=== PATIENT | male | born 1950 | race Caucasian/White ===

== ENCOUNTER 2017-06-08 17:40 | Emergency (ER) | payer OTHER ==
--- NOTE | 2017-06-08 17:43 | EDPHY ---
HPI/HX/ROS/PE/MDM Narrative: CHIEF COMPLAINT: Alcohol intoxication HPI: The patient is a homeless 67 y/o male arriving via EMS after he fell at the homeless assisted while intoxicated. He was not injured in the fall but EMS was unable to get him to stand up and walk. In the ambulance, EMS noted a cough. REVIEW OF SYSTEMS: Limited secondary to intoxication. PMH: Cellulitis on hands, currently being treated with unknown antibiotic. Review of [facility] database indicates numerous ED visits to [facility] including essentially negative CTA within last 1-2 months. History of chronic non- occlusive PE. SOCIAL HISTORY: Homeless, lives in the homeless assisted, alcohol use PHYSICAL EXAM: General:Patient is alert, in no acute distress. He is obviously intoxicated. ENT:Eyes are normal to inspection. ENT inspection normal. Neck: Normal inspection. Full range of motion. Respiratory:No respiratory distress. Diffuse rhonchi noted. Cardiovascular: Regular rate and rhythm. Strong peripheral pulses. Normal cap refill. Abdomen:The abdomen is nontender to palpation. There are no peritoneal signs. There are normal bowel sounds. Back: Normal to inspection. No tenderness to palpation. Skin: Normal color. No rash. Warm and dry. Extremities: Normal appearance. Full range of motion. Neuro: Oriented x3. Normal motor function. Normal sensory function. ED Course: Patient was observed for several hours in the ED with gradual increase in mental status. MDM: This patient presents to the ED secondary to being too intoxicated to walk. His CXR shows possible PNA, but patient is afebrile, not hypoxic and has a normal WBC, so I think this may represent atelectasis or possible early PNA, but the patient is not showing any clear indication for admission. He maintains an ambulatory pulse ox on RA of 92%. He is not complaining of chest pain. I have given the patient an azithromycin here in the ED and will have him return to the ED if he feels ill tomorrow rather than admit for obs. - Data Points Imaging Results: Imaging Impressions Chest X-Ray 06/08/17 17:57 Impression: 1. Left lower lobe pneumonia. 2. Chronic bronchitis. 3. Cardiomegaly and atherosclerotic aorta. 4. Recommend follow-up until clear. Study: X-ray of the chest Indication: Cough Results: X-ray of the chest was obtained. The results of the study are: pneumonia The study was read by the radiologist, Dr. Mackay. I viewed the images myself on the PACS system. Imaging: Discussed imaging studies w/ call center recruiter Radiologist, I viewed and interpreted images myself Laboratory Results: Laboratory Results 06/08/17 18:20 06/08/17 18:55 06/08/17 06/08/17 18:55 18:20 WBC 7.21 10^3/uL 10^3/uL (3.80-9.50) RBC 4.28 10^6/uL L 10^6/uL (4.40-6.38) Hgb 13.7 g/dL g/dL (13.7-17.5) Hct 42.5 % % (40.0-51.0) MCV 99.3 fL fL (81.5-99.8) MCH 32.0 pg pg (27.9-34.1) MCHC 32.2 g/dL L g/dL (32.4-36.7) RDW 15.2 % % (11.5-15.2) Plt Count 239 10^3/uL 10^3/uL (150-400) MPV 9.7 fL fL (8.7-11.7) Neut % (Auto) 56.3 % % (39.3-74.2) Lymph % (Auto) 34.4 % % (15.0-45.0) [place] % (Auto) 6.8 % % (4.5-13.0) Eos % (Auto) 0.0 % L % (0.6-7.6) Baso % (Auto) 1.5 % % (0.3-1.7) Nucleat RBC Rel Count 0.0 % % (0.0-0.2) Absolute Neuts (auto) 4.06 10^3/uL 10^3/uL (1.70-6.50) Absolute Lymphs (auto) 2.48 10^3/uL 10^3/uL (1.00-3.00) Absolute Monos (auto) 0.49 10^3/uL 10^3/uL (0.30-0.80) Absolute Eos (auto) 0.00 10^3/uL L 10^3/uL (0.03-0.40) Absolute Basos (auto) 0.11 10^3/uL H 10^3/uL (0.02-0.10) Absolute Nucleated RBC 0.00 10^3/uL 10^3/uL (0-0.01) Immature Gran % 1.0 % % (0.0-1.1) Immature Gran # 0.07 10^3/uL 10^3/uL (0.00-0.10) Sodium 140 mEq/L mEq/L (134-144) Potassium 4.1 mEq/L mEq/L (3.5-5.2) Chloride 106 mEq/L mEq/L (97-110) Carbon Dioxide 23 mEq/l mEq/l (22-31) Anion Gap 11 mEq/L mEq/L (8-16) BUN 10 mg/dL mg/dL (7-23) Creatinine 0.6 mg/dL L mg/dL (0.7-1.3) Estimated GFR > 60 Glucose 79 mg/dL mg/dL (70-100) Calcium 9.2 mg/dL mg/dL (8.5-10.4) Ethyl Alcohol 181 mg/dL H mg/dL (0-10) General Initial Vital Signs: Initial Vital Signs Temperature (C) 36.6 C 06/08/17 17:52 Heart Rate 84 06/08/17 17:52 Respiratory Rate 18 06/08/17 17:52 Blood Pressure 127/75 H 06/08/17 17:52 O2 Sat (%) 93 06/08/17 17:52 O2 Delivery Mode Nasal Cannula O2 (L/minute) 2 Allergies/Adverse Reactions: Penicillins Allergy (Verified 06/08/17 17:50) Home Medications: Medication Instructions Recorded AZITHROMYCIN [Z-PACK] 250 mg PO DAILY #6 tab 06/08/17 Antibiotic For Skin Infection 06/08/17 Departure - Departure Disposition: Home, Routine, Self-Care Clinical Impression: Alcoholic intoxication, Pneumonia Condition: Good Instructions: Alcohol Intoxication (ED) Additional Instructions: Return to the ED tomorrow for re-evaluation if feeling ill. Take antibiotics as prescribed. Return to the ED for chest pain, difficulty breathing or other concerns. Referrals: NONE *PRIMARY CARE P,. [Primary Care Provider] - As per Instructions Prescriptions: AZITHROMYCIN [Z-PACK] 250 mg PO DAILY #6 tab Report Scribed for: Mayo Ellis Report Scribed by: Eun Cazares Date of Report: 06/08/17 Time of Report: 17:43 Physician Review and Approval Statement: Portions of this note were transcribed by an ED scribe. I personally performed the history, physical exam, and medical decision making; and confirm the accuracy of the information in the transcribed note.
[2017-06-08 18:52] LABS: ABSOLUTE IMMATURE GRANULOCYTES 0.07 10^3/uL (0.00-0.10); ADD DIFF? NO; ADD MORPH? NO; ADD SCAN? NO; ATYPICAL LYMPHOCYTE FLAG 30 (0-99); FRAGMENT RBC FLAG 0 (0-99); HEMATOCRIT 42.5 % (40.0-51.0); HEMOGLOBIN 13.7 g/dL (13.7-17.5); LEFT SHIFT FLG 0 (0-99); LIPEMIA HEMOLYSIS FLAG 80 (0-99); MEAN CELL HEMOGLOBIN CONCENTR. 32.2 g/dL (32.4-36.7); MEAN CELL VOLUME 99.3 fL (81.5-99.8); MEAN PLATELET VOLUME 9.7 fL (8.7-11.7); PLATELET CLUMPS FLAG 0 (0-99); PLATELET COUNT 239 10^3/uL (150-400); RED BLOOD CELL COUNT 4.28 10^6/uL (4.40-6.38); RED CELL DISTRIBUTION WIDTH 15.2 % (11.5-15.2)
[2017-06-08 19:26] LABS: ANION GAP 11 mEq/L (8-16); CALCIUM 9.2 mg/dL (8.5-10.4); CARBON DIOXIDE 23 mEq/l (22-31); CHLORIDE 106 mEq/L (97-110); CREATININE 0.6 mg/dL (0.7-1.3); ETHANOL SERUM 181 mg/dL (0-10); GLOMERULAR FILTRATION RATE > 60; GLUCOSE 79 mg/dL (70-100); POTASSIUM 4.1 mEq/L (3.5-5.2); SODIUM 140 mEq/L (134-144)
[2017-06-08] MEDS ORDERED: AZITHROMYCIN 250 MG TAB PO ONE (21:01)
[2017-06-08 21:41] VITALS: BP 111/63; PULSE 89; RESP 16; TEMP 97.9; O2SAT 90
== END 2017-06-08 22:15 | disposition home or self-care (01) ==
DX: F10.129 Alcohol abuse with intoxication, unspecified (principal); J18.9 Pneumonia, unspecified organism
CPT/HCPCS: G0480

== ENCOUNTER 2017-06-16 17:39 | Emergency (ER) | payer OTHER ==
--- NOTE | 2017-06-16 17:43 | EDPHY ---
HPI/HX/ROS/PE/MDM Narrative: CHIEF COMPLAINT: Fall, struck head HPI: The patient is an intoxicated homeless 67 y/o male arriving via EMS for evaluation of a possible head injury after falling and striking his head this afternoon. His medical history includes COPD, SD, stroke, and rheumatoid arthritis. He was evaluated in the ED here 06/08/17, 8 days ago, for a cough and diagnosed with pneumonia and discharged with azithromycin and an albuterol inhaler. Per EMS, the patient stumbled across the street and fell striking his right temporal region. He did not lose consciousness and denied any complaints to them. He admits to drinking one pint of vodka one hour ago. He denies any complaints upon assessment. REVIEW OF SYSTEMS: Aside from elements discussed in the HPI, a comprehensive 10-point review of systems was reviewed and is negative. PMH: Rheumatoid arthritis, COPD, CHF, MIx2, stroke, alcoholism SOCIAL HISTORY: Smoker, alcohol abuse, homeless. Prior medical records reviewed including ED visit 06/08/17 for pneumonia. PHYSICAL EXAM: General:Patient is alert, in no acute distress. Head: Abrasion ENT:Eyes are normal to inspection. ENT inspection normal. Neck: Normal inspection. Full range of motion. Respiratory:No respiratory distress. Breath sounds normal bilaterally. Cardiovascular: Regular rate and rhythm. Strong peripheral pulses. Normal cap refill. Abdomen:The abdomen is nontender to palpation. There are no peritoneal signs. Back: Normal to inspection. No tenderness to palpation. Skin: Normal color. No rash. Warm and dry. Extremities: Normal appearance. Full range of motion. Neuro: Oriented x3. Normal motor function. Normal sensory function. ED Course: This is a homeless 67 y/o male who arrives intoxicated and presents for evaluation for a fall with head strike. He denies any complaints upon assessment. He has a minor right temporal abrasion, but otherwise has no visible trauma. Plan for basic labs. Chest x-ray ordered due to recent visit for pneumonia. Pneumonia is improved from last week on chest x-ray. Reassessed patient and discussed work up. He is sleeping comfortably as I enter the room. He feels ready for discharge. Return precautions and follow up instructions discussed. He agrees with plan for discharge. - Data Points Imaging Results: Imaging Impressions Chest X-Ray 06/16/17 18:50 Impression: 1. Pneumonia appears somewhat improved compared to last week. 2. Cardiomegaly, unchanged. Imaging: I viewed and interpreted images myself Laboratory Results: Laboratory Results 06/16/17 19:34 06/16/17 19:34 06/16/17 06/16/17 19:34 19:34 WBC 5.17 10^3/uL 10^3/uL (3.80-9.50) RBC 4.29 10^6/uL L 10^6/uL (4.40-6.38) Hgb 13.2 g/dL L g/dL (13.7-17.5) Hct 42.0 % % (40.0-51.0) MCV 97.9 fL fL (81.5-99.8) MCH 30.8 pg pg (27.9-34.1) MCHC 31.4 g/dL L g/dL (32.4-36.7) RDW 15.1 % % (11.5-15.2) Plt Count 184 10^3/uL 10^3/uL (150-400) MPV 9.5 fL fL (8.7-11.7) Neut % (Auto) 58.0 % % (39.3-74.2) Lymph % (Auto) 32.7 % % (15.0-45.0) [place] % (Auto) 7.4 % % (4.5-13.0) Eos % (Auto) 0.0 % L % (0.6-7.6) Baso % (Auto) 1.5 % % (0.3-1.7) Nucleat RBC Rel Count 0.0 % % (0.0-0.2) Absolute Neuts (auto) 3.00 10^3/uL 10^3/uL (1.70-6.50) Absolute Lymphs (auto) 1.69 10^3/uL 10^3/uL (1.00-3.00) Absolute Monos (auto) 0.38 10^3/uL 10^3/uL (0.30-0.80) Absolute Eos (auto) 0.00 10^3/uL L 10^3/uL (0.03-0.40) Absolute Basos (auto) 0.08 10^3/uL 10^3/uL (0.02-0.10) Absolute Nucleated RBC 0.00 10^3/uL 10^3/uL (0-0.01) Immature Gran % 0.4 % % (0.0-1.1) Immature Gran # 0.02 10^3/uL 10^3/uL (0.00-0.10) Sodium 145 mEq/L H mEq/L (134-144) Potassium 3.8 mEq/L mEq/L (3.5-5.2) Chloride 108 mEq/L mEq/L (97-110) Carbon Dioxide 24 mEq/l mEq/l (22-31) Anion Gap 13 mEq/L mEq/L (8-16) BUN 9 mg/dL mg/dL (7-23) Creatinine 0.6 mg/dL L mg/dL (0.7-1.3) Estimated GFR > 60 Glucose 97 mg/dL mg/dL (70-100) Calcium 9.2 mg/dL mg/dL (8.5-10.4) Troponin I 0.025 ng/mL ng/mL (0.000-0.034) General Initial Vital Signs: Initial Vital Signs Temperature (C) 36.9 C 06/16/17 17:59 Heart Rate 73 06/16/17 17:59 Respiratory Rate 18 06/16/17 17:59 Blood Pressure 124/64 H 06/16/17 17:59 O2 Sat (%) 97 06/16/17 17:59 O2 Delivery Mode Room Air O2 (L/minute) 2 Allergies/Adverse Reactions: Penicillins Allergy (Verified 06/08/17 17:50) Home Medications: Medication Instructions Recorded AZITHROMYCIN [Z-PACK] 250 mg PO DAILY #6 tab 06/08/17 Antibiotic For Skin Infection 06/08/17 Departure - Departure Disposition: Home, Routine, Self-Care Clinical Impression: Alcohol intoxication Qualifiers: Complication of substance-induced condition: uncomplicated Qualified Code(s): F10.920 - Alcohol use, unspecified with intoxication, uncomplicated Fall Qualifiers: Encounter type: initial encounter Qualified Code(s): W19.XXXA - Unspecified fall, initial encounter Condition: Good Instructions: Alcohol Intoxication (ED) Additional Instructions: Avoid abuse of alcohol. Follow up with your primary care provider for unimproved symptoms over the next few days. Return for severe headache, weakness or numbness on one side of your body, vision changes, or other worsening of condition. Referrals: [facility],. [Clinic] - As per Instructions Report Scribed for: Mayo Ellis Report Scribed by: Ellie Romero Date of Report: 06/16/17 Time of Report: 17:44 Physician Review and Approval Statement: Portions of this note were transcribed by an ED scribe. I personally performed the history, physical exam, and medical decision making; and confirm the accuracy of the information in the transcribed note.
[2017-06-16 18:05] VITALS: RESP 18
[2017-06-16] MEDS ORDERED: RIVAROXABAN 15 MG TAB PO ONE (18:22)
[2017-06-16 19:39] LABS: PLATELET COUNT 184 10^3/uL (150-400)
[2017-06-16 21:06] VITALS: PULSE 84; TEMP 98.1; O2SAT 92
[2017-06-16 21:31] VITALS: BP 140/88
== END 2017-06-16 21:31 | disposition home or self-care (01) ==
LOC: EDUNIT#
DX: F10.920 Alcohol use, unspecified with intoxication, uncomplicated (principal); J44.9 Chronic obstructive pulmonary disease, unspecified; I50.9 Heart failure, unspecified; I25.2 Old myocardial infarction; F17.200 Nicotine dependence, unspecified, uncomplicated; W18.09XA Striking against other object with subsequent fall, initial encounter; Y92.410 Unspecified street and highway as the place of occurrence of the external cause

== ENCOUNTER 2017-06-25 17:36 | Emergency (ER) | payer OTHER ==
[2017-06-25 17:44] VITALS: TEMP 97.5
--- NOTE | 2017-06-25 17:53 | EDPHY ---
H & P Stated Complaint: etoh,fall Time Seen by Provider: 06/25/17 17:53 HPI/ROS: CHIEF COMPLAINT: Alcohol intoxication HISTORY OF PRESENT ILLNESS: The patient is brought to the emergency department with alcohol intoxication. By report he was brought in with a questionable fall. The patient denies falling. He states he has simply been drinking alcohol today. He denies any complaints of headache, neck pain, chest pain, abdominal pain or extremity pain. The patient denies significant past medical history. The patient takes no medications. The patient has been seen in the emergency department several times in the past month with a similar presentation. The patient has no history of fever, cough or congestion. The patient denies any vomiting or diarrhea. He denies melena or hematemesis. REVIEW OF SYSTEMS: A comprehensive 10 point review of systems is otherwise negative aside from elements mentioned in the history of present illness. Source: Patient - Personal History Current Tetanus/Diphtheria Vaccine: Yes - Medical/Surgical History Hx Asthma: No Hx Chronic Respiratory Disease: Yes Hx Diabetes: No Hx Cardiac Disease: Yes Hx Renal Disease: No Hx Cirrhosis: No Hx Alcoholism: Yes Hx HIV/AIDS: No Hx Splenectomy or Spleen Trauma: No Other PMH: etoh abuse, skin infection to gustavo hands, AAA w/ repair, back surgery , [place] x2, stroke, COPD, CHF, RA, walking pneumonia, - Social History Smoking Status: Current every day smoker - Physical Exam Exam: General Appearance: Alert, disheveled male, no acute distress Head: Atraumatic, specifically no hematoma or skull trauma noted Eyes: Pupils equal, round, reactive ENT, Mouth: No hemotympanum, no oral trauma Neck: Nontender, trachea midline Respiratory: No chest wall tender, subcutaneous air, lungs clear bilaterally Cardiovascular: Regular rate and rhythm Abdomen: Abdomen is soft and nontender, pelvis stable Skin: Old superficial abrasions and ecchymosis noted to the bilateral upper and lower extremity Back: No midline T/L/S pain Extremities: Nontender, full range of motion Neurological: A&Ox3, normal motor function, normal sensory exam Constitutional: Initial Vital Signs Temperature (C) 36.4 C 06/25/17 17:42 Heart Rate 75 06/25/17 17:42 Respiratory Rate 18 06/25/17 17:42 Blood Pressure 118/85 H 06/25/17 17:42 O2 Sat (%) 91 L 06/25/17 17:42 O2 Delivery Mode Room Air Allergies/Adverse Reactions: Penicillins Allergy (Verified 06/08/17 17:50) Home Medications: Medication Instructions Recorded Albuterol 06/25/17 Medical Decision Making ED Course/Re-evaluation: The patient presents the ED with acute alcohol intoxication. His initial examination demonstrates no obvious traumatic injury. He has normal range of motion all 4 extremities. The patient denies any headache or neck pain. Patient is acting appropriately and arousable. He however is clinically intoxicated and unable to safely ambulate. Plan will be for serial examinations in the ED. The patient was reexamined at 8:45 p.m.. The patient is arousable. He is now ambulatory. He has no acute complaints. His examination remains benign. The patient will be [facility] for [facility]. He will be discharged there with a Librium prepack. Differential Diagnosis: Differential diagnosis considered includes alcohol intoxication, metabolic abnormality, intracranial hemorrhage, skull fracture, cervical spine injury Departure - Departure Disposition: Home, Routine, Self-Care Clinical Impression: Alcoholic intoxication Condition: Good Instructions: Alcohol Intoxication (ED) Additional Instructions: 1. Please return to the emergency department for any severe headache, numbness , weakness or other concerns. 2. Please follow up with the [facility] for further assistance with your alcohol dependence. Continued abuse of alcohol puts you at risk for experiencing significant trauma, infection and even . 3. I recommend establishing primary care. You have been given the contact number for [facility]. Referrals: [facility],. [Clinic] - As per Instructions [facility] 24 Hours [Outside] - As per Instructions
[2017-06-25] MEDS ORDERED: CHLORDIAZEPOXIDE 25MG PREPK#6 BTL TAKEHOME ONE (20:53)
[2017-06-25 21:20] VITALS: BP 118/70; PULSE 79; RESP 18; O2SAT 91
== END 2017-06-25 21:20 | disposition home or self-care (01) ==
LOC: EDUNIT#
DX: F10.129 Alcohol abuse with intoxication, unspecified (principal); J44.9 Chronic obstructive pulmonary disease, unspecified; I25.2 Old myocardial infarction; I50.9 Heart failure, unspecified; F17.200 Nicotine dependence, unspecified, uncomplicated

== ENCOUNTER 2017-06-25 22:08 | Emergency (ER) | payer OTHER ==
--- NOTE | 2017-06-25 22:22 | EDPHY ---
H & P Time Seen by Provider: 06/25/17 22:14 HPI/ROS: CHIEF COMPLAINT: Unwitnessed fall, head and neck pain. HISTORY OF PRESENT ILLNESS: The patient is an intoxicated 67 y/o male arriving via EMS after he was found down at the detox center. He was discharged from our ED to the detox center earlier today. He had an unwitnessed fall upon arrival to the [facility]. Upon EMS arrival, they noted a hematoma to the back of his head and applied a c-collar. The patient is complaining of moderate neck pain. No STARR. He denies other complaints or anticoagulant use. History limited by intoxication. REVIEW OF SYSTEMS: Constitutional: No fever Eyes: No visual changes ENT: No facial/dental injury Respiratory: No cough, no shortness of breath Cardiac: No chest pain Gastrointestinal: no abdominal pain Genitourinary: No hematuria Musculoskeletal: No leg pain Skin: No rash Neurological: No headache Psychiatric: No depression - Medical/Surgical History PMH: Alcohol abuse Prior medical records reviewed including ED visit from earlier this evening. Hx Asthma: No Hx Chronic Respiratory Disease: Yes Hx Diabetes: No Hx Cardiac Disease: Yes Hx Renal Disease: No Hx Cirrhosis: No Hx Alcoholism: Yes Hx HIV/AIDS: No Hx Splenectomy or Spleen Trauma: No Other PMH: etoh abuse, skin infection to gustavo hands, AAA w/ repair, back surgery , [place] x2, stroke, COPD, CHF, RA, walking pneumonia, - Social History Smoking Status: Current every day smoker Additional Social History: Alcohol abuse. Daily smoker. Homeless. - Physical Exam Exam: General Appearance: Alert, disheveled, cooperative Head: Hematoma to occiput, no laceration Eyes: Pupils equal and round, no conjunctival pallor or injection ENT, Mouth: Mucous membranes moist, no facial giovanny tenderness Neck: C-collar in place, diffuse tenderness with palpation Respiratory: no c/w tenderness, Lungs are clear to auscultation Cardiovascular: Regular rate and rhythm Gastrointestinal: Abdomen is soft and non-tender Neurological: A&O, nonfocal, slurred speech Skin: Warm and dry Extremities: normal inspeciton Psychiatric: Mood and affect normal Constitutional: Initial Vital Signs Temperature (C) 36.8 C 06/25/17 22:21 Heart Rate 77 06/25/17 22:21 Respiratory Rate 16 06/25/17 22:21 Blood Pressure 85/55 L 06/25/17 22:21 O2 Sat (%) 90 L 06/25/17 22:21 O2 Delivery Mode Nasal Cannula O2 (L/minute) 3 Allergies/Adverse Reactions: Penicillins Allergy (Verified 06/26/17 03:09) Home Medications: Medication Instructions Recorded Albuterol 06/25/17 Medical Decision Making - Diagnostics Imaging Results: CT head/Cspine read by Dr. Parrish: ROBERTO ED Course/Re-evaluation: This is an intoxicated 67 y/o male who presents with an occipital hematoma and neck pain secondary to a witnessed fall at the [facility]. No focal neuro deficits or other visible trauma noted on exam. Plan for head and neck CTs to rule out ICH/fx. CT rsults d/w pt. Cervical spine collar removed by me after the negative CT scan of the neck. No midline tenderness. ROM without pain. He is able to ambulate with steady gait. He will be discharged back to the [facility]. Differential Diagnosis: Differential diagnosis includes though it is not limited to fracture, intracranial hemorrhage, pneumothorax, hemothorax, intra-abdominal hemorrhage. Departure - Departure Disposition: Home, Routine, Self-Care Clinical Impression: Neck pain, Unwitnessed fall Alcoholic intoxication Qualifiers: Complication of substance-induced condition: uncomplicated Qualified Code(s): F10.920 - Alcohol use, unspecified with intoxication, uncomplicated Traumatic hematoma of occiput Qualifiers: Encounter type: initial encounter Qualified Code(s): S00.83XA - Contusion of other part of head, initial encounter Condition: Good Instructions: Head Injury (ED), Alcohol Intoxication (ED), Hematoma (ED) Additional Instructions: 1. Avoid abuse of alcohol. 2. Follow up with [facility] to establish primary care. 3. Return to the ED for severe headache, weakness or numbness on one side of your body, or other worsening of condition. Referrals: [facility],. [Clinic] - 2-3 days, call for appt. Report Scribed for: Alix Meadows Report Scribed by: Ellie Romero Date of Report: 06/25/17 Time of Report: 22:22 Physician Review and Approval Statement: 06/25/17 22:22 Portions of this note were transcribed by a medical care evaluation specialist. I personally performed a history, physical exam, medical decision making, and confirmed accuracy of information the transcribed note.
[2017-06-25 22:23] VITALS: BP 85/55; PULSE 77; RESP 16; TEMP 98.2; O2SAT 90
== END 2017-06-25 23:49 | disposition home or self-care (01) ==
LOC: EDUNIT#
DX: S19.9XXA Unspecified injury of neck, initial encounter (principal); S00.83XA Contusion of other part of head, initial encounter; F10.920 Alcohol use, unspecified with intoxication, uncomplicated; J44.9 Chronic obstructive pulmonary disease, unspecified; I50.9 Heart failure, unspecified; F17.200 Nicotine dependence, unspecified, uncomplicated; I25.2 Old myocardial infarction; W19.XXXA Unspecified fall, initial encounter

== ENCOUNTER 2017-06-26 03:05 | Emergency (ER) | payer OTHER ==
[2017-06-26 03:14] VITALS: RESP 18; TEMP 97.9
--- NOTE | 2017-06-26 03:43 | EDPHY ---
H & P Stated Complaint: sob-from [facility] 3rd visit today Time Seen by Provider: 06/26/17 03:41 HPI/ROS: Chief Complaint: Shortness of breath HPI: 67-year-old alcoholic male presenting for the 3rd time in less than 12 hours from the [facility]. Patient has a history of COPD and was noted to be hypoxic. He has not been using his inhalers but states he does have them. Is complaining of some mild shortness of breath which is baseline. He has not been using a spacer with his inhalers. No cough. No fevers or chills. No nausea or vomiting. Patient was here several hours ago after falling after arrived to the [facility]. He had a CT scan of his head and cervical spine which were negative. Patient otherwise states he does is normal state of health. ROS: 10 point Review of Systems is negative except as noted in the HPI. PMH: COPD, alcoholism Social History: Positive smoking, positive alcohol, homeless Family History: non-contributory Physical Exam: Gen: Awake, Alert, No Distress HEENT: Nose: no rhinorrhea Eyes: PERRLA, EOMI Mouth: Moist mucosa Neck: Supple, no JVD Chest: nontender, lungs diminished but moving air. Heart: S1, S2 normal, no murmur Abd: Soft, non-tender, no guarding Back: no CVA tenderness, no midline tenderness Ext: no edema, non-tender Skin: no rash Neuro: CN II-XII intact, Sensation grossly intact, Strength 5/5 in bilateral upper and lower extremities - Personal History Current Tetanus Diphtheria and Acellular Pertussis (TDAP): Yes - Medical/Surgical History Hx Asthma: No Hx Chronic Respiratory Disease: Yes Hx Diabetes: No Hx Cardiac Disease: Yes Hx Renal Disease: No Hx Cirrhosis: No Hx Alcoholism: Yes Hx HIV/AIDS: No Hx Splenectomy or Spleen Trauma: No Other PMH: etoh abuse, skin infection to gustavo hands, AAA w/ repair, back surgery , [place] x2, stroke, COPD, CHF, RA, walking pneumonia, - Social History Smoking Status: Current every day smoker Constitutional: Initial Vital Signs Temperature (C) 36.6 C 06/26/17 03:10 Heart Rate 81 06/26/17 03:10 Respiratory Rate 18 06/26/17 03:10 Blood Pressure 134/87 H 06/26/17 03:10 O2 Sat (%) 92 06/26/17 03:10 O2 Delivery Mode Room Air O2 (L/minute) 2 Allergies/Adverse Reactions: Penicillins Allergy (Verified 06/26/17 03:09) Home Medications: Medication Instructions Recorded Albuterol 06/25/17 Medical Decision Making ED Course/Re-evaluation: 67-year-old male with COPD presenting [facility] with hypoxia. Here he is 91%. He we gave him his albuterol puffers with the spacer in he has improved. Patient is medically cleared for discharge. He is currently at his baseline. Will follow up with primary care physician as an outpatient. Departure - Departure Disposition: Home, Routine, Self-Care Clinical Impression: COPD exacerbation, Alcohol intoxication Condition: Good Instructions: COPD (Chronic Obstructive Pulmonary Disease) (ED), Alcohol Intoxication (ED) Additional Instructions: Follow up with primary care physician in 1-2 days for further evaluation. Please seek help to decrease your alcohol consumption. Return to the emergency department for increasing shortness of breath, chest pain, fevers, chills, nausea, vomiting, or any other concerns. Referrals: [facility],. [Clinic] - As per Instructions
[2017-06-26 04:10] VITALS: O2SAT 92
[2017-06-26 06:01] VITALS: BP 143/66; PULSE 84
== END 2017-06-26 06:03 | disposition home or self-care (01) ==
LOC: EDUNIT#
DX: J44.1 Chronic obstructive pulmonary disease with (acute) exacerbation (principal); F10.129 Alcohol abuse with intoxication, unspecified; F17.200 Nicotine dependence, unspecified, uncomplicated; I50.9 Heart failure, unspecified

== ENCOUNTER 2017-07-12 23:29 | Emergency (ER) | payer OTHER ==
[2017-07-12] MEDS ORDERED: CEPHALEXIN 500 MG CAP PO ONE (23:59)
[2017-07-12] MEDS ORDERED: IPRATROPIUM/ALBUTEROL 3 ML DEYVIAL IH ONE (23:59)
[2017-07-12] MEDS ORDERED: SULFAMETHOX/TMP 800/160 MG 1 TAB PO ONE (23:59)
--- NOTE | 2017-07-13 00:24 | EDPHY ---
H & P Stated Complaint: Med Clear Time Seen by Provider: 07/12/17 23:50 HPI/ROS: HPI The patient presents with medical clearance. He is complaining of a cough which has been present for the last several weeks. It is productive. He has a history of COPD and was here earlier this month for hypoxia. He also is complaining of bilateral hand swelling. He has a history of bilateral hand infection, treated by [facility]. He was on antibiotics, however is no longer taking them. He denies any fevers or chills. He said he got a bad sunburn on his hands as well. REVIEW OF SYSTEMS Constitutional: No fever, no chills. Eyes: No discharge. ENT: No sore throat. Cardiovascular: No chest pain, no palpitations. Respiratory: Pot for cough, no shortness of breath. Gastrointestinal: No abdominal pain, no vomiting. Genitourinary: No hematuria. Musculoskeletal: No back pain. Skin: No rashes. Neurological: No headache. PMHx: COPD, CHF, chronic alcohol abuse Soc Hx: Homeless, chronic alcohol abuse PHYSICAL General Appearance: Alert, no distress Eyes: Pupils equal and round no pallor or injection ENT, Mouth: Mucous membranes moist Respiratory: There are no retractions, lungs are clear to auscultation Cardiovascular: Regular rate and rhythm Gastrointestinal: Abdomen is soft and non-tender, no masses, bowel sounds normal Neurological: A&O, moves all extremities Skin: Warm and dry, bilateral hand edema and erythema worse on the left with multiple areas of excoriation and healing wound, there is no area of fluctuance Musculoskeletal: Neck is supple non tender Extremities: symmetrical, full range of motion Psychiatric: Patient is oriented X 3, there is no agitation Source: Patient - Personal History Current Tetanus/Diphtheria Vaccine: Unsure - Medical/Surgical History Hx Asthma: No Hx Chronic Respiratory Disease: Yes Hx Diabetes: No Hx Cardiac Disease: Yes Hx Renal Disease: No Hx Cirrhosis: No Hx Alcoholism: Yes Hx HIV/AIDS: No Hx Splenectomy or Spleen Trauma: No Other PMH: etoh abuse, skin infection to gustavo hands, AAA w/ repair, back surgery , [place] x2, stroke, COPD, CHF, RA, walking pneumonia, - Social History Smoking Status: Current every day smoker Constitutional: Initial Vital Signs Temperature (C) 36.6 C 07/12/17 23:36 Heart Rate 97 07/12/17 23:36 Respiratory Rate 19 07/12/17 23:36 Blood Pressure 136/93 H 07/12/17 23:36 O2 Sat (%) 90 L 07/12/17 23:36 O2 Delivery Mode Room Air Allergies/Adverse Reactions: Penicillins Allergy (Verified 07/12/17 23:42) Home Medications: Medication Instructions Recorded Albuterol 06/25/17 Advair 250/50 (*) 07/12/17 Clindamycin HCl [Clindamycin] 300 mg PO TID #30 cap 07/13/17 Clotrimazole 1% [Lotrimin 1%] 12 gm TP BID #1 cream 07/13/17 levOFLOXACIN [Levofloxacin] 750 mg PO DAILY #7 tablet 07/13/17 Medical Decision Making - Diagnostics Imaging Results: Chest x-ray two view shows left lower lobe pneumonia, interpreted by me, radiology interpretation is pending. ED Course/Re-evaluation: This is a 67-year-old man with homelessness, COPD, recent hand infection who presents with cough and hand swelling. On exam, he is slightly hypoxic, his lungs sound clear and he is in no respiratory distress. His hands are swollen bilaterally and slightly erythematous, he has recently finished a course of antibiotics. Differential diagnosis includes URI, COPD exacerbation, bronchitis, pneumonia, hand cellulitis verses arthritis. In the emergency department, patient was given a DuoNeb with improvement in his saturations to the mid 90s. Chest x-ray was obtained that did show current left -sided pneumonia. As I feel this is likely the cause of his cough. He has not recently been hospitalized, thus I will treat him for a community-acquired pneumonia. Labs were checked and he does not have a leukocytosis or elevated BUN. He is not confused. I do not think he requires inpatient treatment for pneumonia. I will also prescribe him antibiotics for presumed hand cellulitis. He will be [facility] to [facility]. 2:50 a.m.- The patient returned to the emergency department after being evaluated by the [facility] nurse. She was concerned because of the appearance of his feet. The patient had no complaints about his feet so I did not examine them while he was here. On exam, he does have flaking of the skin of the plantar surfaces of his feet and ecchymoses of his great toes bilaterally. He has sensation throughout his feet to light touch, his feet are warm, he has 2+ DP pulses, he has no signs of foot infection besides likely tinea pedis. He is likely suffering from mild trench foot given his homelessness. I called the [facility] nurse and discussed this all with her. I recommend clotrimazole and warm soaks for his feet. He will be transferred back to [facility]. - Data Points Laboratory Results: Laboratory Results 07/13/17 00:43 07/13/17 00:43 07/13/17 07/13/17 00:43 00:43 WBC 6.72 10^3/uL 10^3/uL (3.80-9.50) RBC 4.27 10^6/uL L 10^6/uL (4.40-6.38) Hgb 12.9 g/dL L g/dL (13.7-17.5) Hct 39.9 % L % (40.0-51.0) MCV 93.4 fL fL (81.5-99.8) MCH 30.2 pg pg (27.9-34.1) MCHC 32.3 g/dL L g/dL (32.4-36.7) RDW 16.2 % H % (11.5-15.2) Plt Count 165 10^3/uL 10^3/uL (150-400) MPV 10.2 fL fL (8.7-11.7) Neut % (Auto) 53.9 % % (39.3-74.2) Lymph % (Auto) 31.7 % % (15.0-45.0) [place] % (Auto) 13.2 % H % (4.5-13.0) Eos % (Auto) 0.0 % L % (0.6-7.6) Baso % (Auto) 0.9 % % (0.3-1.7) Nucleat RBC Rel Count 0.0 % % (0.0-0.2) Absolute Neuts (auto) 3.62 10^3/uL 10^3/uL (1.70-6.50) Absolute Lymphs (auto) 2.13 10^3/uL 10^3/uL (1.00-3.00) Absolute Monos (auto) 0.89 10^3/uL H 10^3/uL (0.30-0.80) Absolute Eos (auto) 0.00 10^3/uL L 10^3/uL (0.03-0.40) Absolute Basos (auto) 0.06 10^3/uL 10^3/uL (0.02-0.10) Absolute Nucleated RBC 0.00 10^3/uL 10^3/uL (0-0.01) Immature Gran % 0.3 % % (0.0-1.1) Immature Gran # 0.02 10^3/uL 10^3/uL (0.00-0.10) Sodium 143 mEq/L mEq/L (134-144) Potassium 4.0 mEq/L mEq/L (3.5-5.2) Chloride 106 mEq/L mEq/L (97-110) Carbon Dioxide 24 mEq/l mEq/l (22-31) Anion Gap 13 mEq/L mEq/L (8-16) BUN 12 mg/dL mg/dL (7-23) Creatinine 0.6 mg/dL L mg/dL (0.7-1.3) Estimated GFR > 60 Glucose 93 mg/dL mg/dL (70-100) Calcium 9.5 mg/dL mg/dL (8.5-10.4) Total Bilirubin 0.6 mg/dL mg/dL (0.1-1.4) AST 26 IU/L IU/L (17-59) ALT 30 IU/L IU/L (21-72) Alkaline Phosphatase 80 IU/L IU/L (38-126) Total Protein 6.3 g/dL g/dL (6.3-8.2) Albumin 3.3 g/dL L g/dL (3.5-5.0) Medications Given: Discontinued Medications Albuterol/Ipratropium (Duoneb) 3 ml IH EDNOW ONE Stop: 07/13/17 00:00 Last Admin: 07/13/17 00:05 Dose: 3 ml Cephalexin HCl (Keflex) 500 mg PO EDNOW ONE PRN Reason: Protocol Stop: 07/13/17 00:00 Last Admin: 07/13/17 00:05 Dose: 500 mg Levofloxacin (Levaquin) 750 mg PO EDNOW ONE PRN Reason: Protocol Stop: 07/13/17 01:17 Last Admin: 07/13/17 01:32 Dose: 750 mg Trimethoprim/Sulfamethoxazole (Bactrim Ds) 1 ea PO EDNOW ONE PRN Reason: Protocol Stop: 07/13/17 00:00 Last Admin: 07/13/17 00:06 Dose: 1 ea Departure - Departure Disposition: Home, Routine, Self-Care Clinical Impression: Cellulitis of hand, Medical clearance for incarceration, Trench foot Pneumonia Qualifiers: Pneumonia type: due to unspecified organism Laterality: left Lung location: lower lobe of lung Qualified Code(s): J18.1 - Lobar pneumonia, unspecified organism COPD (chronic obstructive pulmonary disease) Qualifiers: COPD type: unspecified COPD Qualified Code(s): J44.9 - Chronic obstructive pulmonary disease, unspecified Condition: Good Instructions: Pneumonia (ED) Additional Instructions: If it is possible, you should wash your feet in warm water for about 20 minutes once a day. Afterwards, apply the clotrimazole cream. You can follow up with the editorial cartoonist once your discharged from the [facility]. Please return to the emergency department if you are worse in any way. Referrals: [facility],. [Clinic] - As per Instructions Prescriptions: Clindamycin HCl [Clindamycin] 300 mg PO TID #30 cap Clotrimazole 1% [Lotrimin 1%] 12 gm TP BID #1 cream levOFLOXACIN [Levofloxacin] 750 mg PO DAILY #7 tablet
[2017-07-13 00:56] LABS: % IMMATURE GRANULYOCYTES 0.3 % (0.0-1.1); ABSOLUTE IMMATURE GRANULOCYTES 0.02 10^3/uL (0.00-0.10); ADD DIFF? NO; ADD MORPH? NO; ADD SCAN? NO; ATYPICAL LYMPHOCYTE FLAG 0 (0-99); FRAGMENT RBC FLAG 0 (0-99); HEMATOCRIT 39.9 % (40.0-51.0); HEMOGLOBIN 12.9 g/dL (13.7-17.5); LEFT SHIFT FLG 0 (0-99); LIPEMIA HEMOLYSIS FLAG 80 (0-99); MEAN CELL HEMOGLOBIN 30.2 pg (27.9-34.1); MEAN CELL HEMOGLOBIN CONCENTR. 32.3 g/dL (32.4-36.7); MEAN CELL VOLUME 93.4 fL (81.5-99.8); MEAN PLATELET VOLUME 10.2 fL (8.7-11.7); PLATELET CLUMPS FLAG 0 (0-99); PLATELET COUNT 165 10^3/uL (150-400); RED BLOOD CELL COUNT 4.27 10^6/uL (4.40-6.38); RED CELL DISTRIBUTION WIDTH 16.2 % (11.5-15.2)
[2017-07-13 01:01] LABS: ALANINE AMINOTRANSFERASE 30 IU/L (21-72); ALBUMIN 3.3 g/dL (3.5-5.0); ALKALINE PHOSPHATASE 80 IU/L (38-126); ANION GAP 13 mEq/L (8-16); ASPARTATE AMINOTRANSFERASE 26 IU/L (17-59); BILIRUBIN,TOTAL 0.6 mg/dL (0.1-1.4); CALCIUM 9.5 mg/dL (8.5-10.4); CARBON DIOXIDE 24 mEq/l (22-31); CHLORIDE 106 mEq/L (97-110); CREATININE 0.6 mg/dL (0.7-1.3); GLOMERULAR FILTRATION RATE > 60; GLUCOSE 93 mg/dL (70-100); SODIUM 143 mEq/L (134-144); TOTAL PROTEIN 6.3 g/dL (6.3-8.2)
[2017-07-13 01:36] VITALS: BP 128/90; PULSE 93; RESP 18; TEMP 97.5; O2SAT 89
== END 2017-07-13 02:10 | disposition home or self-care (01) ==
LOC: EDUNIT#
DX: J18.1 Lobar pneumonia, unspecified organism (principal); J44.9 Chronic obstructive pulmonary disease, unspecified; L03.114 Cellulitis of left upper limb; L03.113 Cellulitis of right upper limb; T69.029A Immersion foot, unspecified foot, initial encounter; I50.9 Heart failure, unspecified; I25.2 Old myocardial infarction; F17.200 Nicotine dependence, unspecified, uncomplicated; X31.XXXA Exposure to excessive natural cold, initial encounter

== ENCOUNTER 2017-07-26 09:06 | Emergency (ER) | payer OTHER ==
--- NOTE | 2017-07-26 09:10 | EDPHY ---
H & P Time Seen by Provider: 07/26/17 09:08 HPI/ROS: CHIEF COMPLAINT: Intoxicated, found down on sidewalk HISTORY OF PRESENT ILLNESS: The patient is brought in by paramedics after he was found down on a sidewalk. The patient reports having a lot of alcohol throughout the course of the day yesterday. He reports he "passed out' secondary to his intoxication. The patient does report falling yesterday sustaining an abrasion to his forehead. The patient denies any headache, neck pain, chest pain or difficulty breathing. The patient states he typically drinks a pt of alcohol a day. The patient does feel mildly tremulous this morning. REVIEW OF SYSTEMS: A comprehensive 10 point review of systems is otherwise negative aside from elements mentioned in the history of present illness. Source: Patient Exam Limitations: No limitations - Medical/Surgical History Hx Asthma: No Hx Chronic Respiratory Disease: Yes Hx Diabetes: No Hx Cardiac Disease: Yes Hx Renal Disease: No Hx Cirrhosis: No Hx Alcoholism: Yes Hx HIV/AIDS: No Hx Splenectomy or Spleen Trauma: No Other PMH: etoh abuse, skin infection to gustavo hands, AAA w/ repair, back surgery , [place] x2, stroke, COPD, CHF, RA, walking pneumonia, - Social History Smoking Status: Current every day smoker - Physical Exam Exam: General Appearance: Disheveled male, no acute distress Head: Superficial abrasions to forehead, no hematoma or bony tenderness Neck: No midline tenderness to palpation Eyes: Pupils equal and round no pallor or injection ENT, Mouth: Mucous membranes moist Respiratory: There are no retractions, lungs are clear to auscultation Cardiovascular: Tachycardic Gastrointestinal: Abdomen is soft and nontender, no masses, bowel sounds normal Neurological: Alert and oriented x4, 5/5 strength all 4 extremities, patient does walk with a wheeled walker. Skin: Warm and dry, no rashes Musculoskeletal: Neck is supple nontender Extremities: symmetrical, full range of motion Constitutional: Initial Vital Signs Temperature (C) 36.4 C 07/26/17 09:15 Heart Rate 111 H 07/26/17 09:15 Respiratory Rate 18 07/26/17 09:15 Blood Pressure 176/117 H 07/26/17 09:15 O2 Sat (%) 89 L 07/26/17 09:15 O2 Delivery Mode Room Air O2 (L/minute) 2 Allergies/Adverse Reactions: Penicillins Allergy (Verified 07/26/17 09:13) Home Medications: Medication Instructions Recorded NK [No Known Home Meds] 07/26/17 Medical Decision Making ED Course/Re-evaluation: The patient presents to the ED with symptoms consistent with mild alcohol withdrawal. The patient received 50 mg of Librium. The patient does have mild facial abrasions without evidence of a hematoma or skull fracture. He is noted to be neurologically intact. He has no complaints of headache or neck pain. The patient's oral temperature upon arrival is 36.4 degrees. He has no evidence of hypothermia. The patient has no evidence of significant traumatic injury. He is neurologically intact. The patient would [facility] with his mild alcohol withdrawal. Differential Diagnosis: Differential diagnosis considered includes hypothermia, alcohol intoxication, alcohol withdrawal syndrome, occult trauma - Data Points Medications Given: Discontinued Medications Chlordiazepoxide HCl (Librium) 50 mg PO EDNOW ONE Stop: 07/26/17 09:20 Last Admin: 07/26/17 09:22 Dose: 50 mg Chlordiazepoxide HCl (Librium) 50 mg PO EDNOW ONE Stop: 07/26/17 09:20 Last Admin: 07/26/17 09:20 Dose: Not Given Departure - Departure Disposition: Home, Routine, Self-Care Condition: Good Instructions: Abuse of Alcohol (ED), Alcohol Withdrawal (ED) Referrals: NONE *PRIMARY CARE P,. [Primary Care Provider] - As per Instructions
[2017-07-26 09:16] VITALS: RESP 18
[2017-07-26] MEDS ORDERED: chlordiazePOXIDE 25 MG CAP PO ONE ×2 (09:19)
[2017-07-26 10:38] VITALS: BP 159/102; PULSE 95; TEMP 98.4; O2SAT 93
--- NOTE | 2017-07-26 13:46 | ASMTCMCOM ---
CM Note CM Note Notes: Patient brought into the ED via EMS after being found under a bridge and for being cold and intoxicated. This is the patient's 7th ED visit since 06/08/17. Patient has a walker and various other belongings. Patient states he has gone through the Coordinated Entry process and was staying at the alf until he brought a bottle of vodka into the alf. Patient states he has a 30-day suspension from [facility]. Patient provided list of rotating [facility] warming alf locations in case he might be allowed to stay there. Patient informed that if it is a Severe Weather night then he should be allowed into the [facility] location as long as he can care for himself. Patient was discharged to Withdrawal Management via cab voucher. CM available for further assistance. Date Signed: 07/26/2017 01:46 PM Electronically Signed By:Fernanda Hargrove RN
--- NOTE | 2017-07-26 13:49 | ASDISCHSUM ---
Discharge Information Plan Status:Substance Abuse Referrals Medically Cleared to Leave: Discharge Date:07/26/2017 10:43 AM CM D/C Disposition:Streets (Homeless) ADT D/C Disposition:Home, Routine, Self-Care Projected Discharge Date:07/26/2017 10:43 AM Transportation at D/C:Cab Voucher Discharge Delay Reason: Follow-Up Date:07/26/2017 10:43 AM Discharge Slot: Final Diagnosis: Placement Information Patient Contact Information Contact Name:STEPHEN Relationship: Address: Work Phone: City:[place] Alternate Phone: State/Zip Code:[place] Email: Financial Information Financial Class: Primary Plan Desc:MEDICARE OUTPATIENT Primary Plan Number:[id number] Secondary Plan Desc: Secondary Plan Number: Assessment Information LACE LACE Acuity / Level of Care Answers: No. Emergency dept visits in Answers: 4+ last 6 months Score: 4 Date Signed: 07/26/2017 01:40 PM Electronically Signed By:Fernanda Hargrove RN [facility] Progress Note CM Note CM Note Notes: Patient brought into the ED via EMS after being found under a bridge and for being cold and intoxicated. This is the patient's 7th ED visit since 06/08/17. Patient has a walker and various other belongings. Patient states he has gone through the Coordinated Entry process and was staying at the care home until he brought a bottle of vodka into the care home. Patient states he has a 30-day suspension from [facility]. Patient provided list of rotating [facility] warming care home locations in case he might be allowed to stay there. Patient informed that if it is a Severe Weather night then he should be allowed into the [facility] location as long as he can care for himself. Patient was discharged to Withdrawal Management via cab voucher. available for further assistance. Date Signed: 07/26/2017 01:46 PM Electronically Signed By:Fernanda Hargrove RN LACE LACE Acuity / Level of Care Answers: No. Comorbidities - select Answers: Previous myocardial all that apply infarction Cerebrovascular disease Congestive heart failure Chronic pulmonary disease Emergency dept visits in Answers: 4+ last 6 months Score: 10 Date Signed: 07/26/2017 01:48 PM Electronically Signed By:Fernanda Hargrove RN Intervention Information Intervention Type:Cab Vouchers Date of Service:07/26/2017 01:48 PM Patient Type:Emergency Room Staff Member:NICOLAS Hargrove [place] Hours:0.25 Discipline:Serologist Severity: Comment:[facility] cab voucher used Intervention Type:Community Resources Date of Service:07/26/2017 01:48 PM Patient Type:Emergency Room Staff Member:NICOLAS Hargrove [place] Hours:0.25 Discipline:Serologist Severity: Comment:Provided information on local homeless resources.
== END 2017-07-26 10:43 | disposition home or self-care (01) ==
LOC: EDUNIT#
DX: F10.129 Alcohol abuse with intoxication, unspecified (principal); J44.9 Chronic obstructive pulmonary disease, unspecified; I25.2 Old myocardial infarction; I50.9 Heart failure, unspecified; F17.200 Nicotine dependence, unspecified, uncomplicated

== ENCOUNTER 2017-08-03 22:03 | Emergency (ER) | payer OTHER ==
--- NOTE | 2017-08-03 22:08 | EDPHY ---
H & P HPI/ROS: HPI CHIEF COMPLAINT: "I am cold" HISTORY OF PRESENT ILLNESS: This patient is 67-year-old male, significant past medical history for daily alcohol use and alcoholism, homeless, presents emergency room by EMS stating that he is cold. States could not tolerate the cold temperature tonight. Of note upon arrival the patient is not hypothermic. He does state that he had alcohol earlier but appears to be clinically sober. Additionally is complaining some upper right eyelid swelling. He is unsure how he got this. He denies trauma. Denies fever. Past Medical History: Walking pneumonia, daily alcohol use, alcoholism, history of [place], COPD, CHF Past Surgical History: AAA repair Social History: Homeless, daily alcohol use, daily tobacco use. Denies other illicit drugs Family History: Noncontributory. ROS REVIEW OF SYSTEMS: A comprehensive 10 point review of systems is otherwise negative aside from elements mentioned in the history of present illness. Exam Constitutional triage nursing summary reviewed, vital signs reviewed, awake/ alert. Eyes normal conjunctivae and sclera, EOMI, PERRLA. Right Upper Eyelid: Minimal swelling mild erythema, no crepitus, nontender palpation, orbit appears intact. No trauma visualized. He denies eye pain or change in his vision. No evidence of septal or preseptal significant cellulitis on exam. HENT normal inspection, atraumatic, moist mucus membranes, no epistaxis, neck supple/ no meningismus, no raccoon eyes. Respiratory clear to auscultation bilaterally, normal breath sounds, no respiratory distress, no wheezing. Cardiovascular rate normal, regular rhythm, no murmur, no edema, distal pulses normal. Gastrointestinal soft, non-tender, no rebound, no guarding, normal bowel sounds, no distension, no pulsatile mass. Genitourinary no CVA tenderness. Musculoskeletal no midline vertebral tenderness, full range of motion, no calf swelling, no tenderness of extremities, no meningismus, good pulses, neurovascularly intact. Skin pink, warm, & dry, no rash, skin atraumatic. Neurologic awake, alert and oriented x 3, AAOx3, moves all 4 extremities equally, motor intact, sensory intact, CN II-XII intact, normal cerebellar, normal vision, normal speech. Psychiatric normal mood/affect. Heme/Lymph/Immune no lymphadenopathy. Differential Diagnosis: Includes but is not limited to in a particular order alcohol intoxication, alcoholism, early right upper eyelid infection Medical Decision Making: Plan for this patient will try provide him to a retirement this evening. He is not hypothermic here. Additionally will also place him on antibiotic eyedrops as well as oral Keflex. This will be to treat a possible early upper eyelid infection. Re-evaluation: Source: Patient, EMS - Medical/Surgical History Hx Asthma: No Hx Chronic Respiratory Disease: Yes Hx Diabetes: No Hx Cardiac Disease: Yes Hx Renal Disease: No Hx Cirrhosis: No Hx Alcoholism: Yes Hx HIV/AIDS: No Hx Splenectomy or Spleen Trauma: No Other PMH: etoh abuse, skin infection to gustavo hands, AAA w/ repair, back surgery , [place] x2, stroke, COPD, CHF, RA, walking pneumonia, - Social History Smoking Status: Current every day smoker Constitutional: Initial Vital Signs Temperature (C) 37.0 C 08/03/17 22:08 Heart Rate 105 H 08/03/17 22:08 Respiratory Rate 18 08/03/17 22:08 Blood Pressure 135/95 H 08/03/17 22:08 O2 Sat (%) 91 L 08/03/17 22:08 O2 Delivery Mode Room Air Allergies/Adverse Reactions: Penicillins Allergy (Verified 08/03/17 22:08) Home Medications: Medication Instructions Recorded NK [No Known Home Meds] 07/26/17 Departure - Departure Disposition: Home, Routine, Self-Care Clinical Impression: Cold exposure Qualifiers: Encounter type: initial encounter Qualified Code(s): T69.9XXA - Effect of reduced temperature, unspecified, initial encounter Swelling of eyelid Qualifiers: Laterality: right Qualified Code(s): H02.843 - Edema of right eye, unspecified eyelid Condition: Good Instructions: Blepharitis (ED) Additional Instructions: 1. Warm compresses 3 times a day. 2. Antibiotic eyedrops as prescribed. 3. Oral Keflex as prescribed. 4. Return emergency room if there is worsening symptoms questions or concerns. Referrals: Patient,NotPresent [Primary Care Provider] - As per Instructions
[2017-08-03 22:10] VITALS: RESP 18
[2017-08-03] MEDS ORDERED: CEPHALEXIN 500MG PREPACK#4 BTL TAKEHOME ONE (22:23)
[2017-08-03] MEDS ORDERED: OFLOXACIN 0.3% 5ML OPHT DROPS EACHEYE ONE (22:23)
[2017-08-03] MEDS ORDERED: OFLOXACIN 0.3% SOLN PREPACK OPHT.BTL TAKEHOME ONE (22:23)
[2017-08-03] MEDS ORDERED: CEPHALEXIN 500 MG CAP PO ONE (22:23)
[2017-08-03 22:43] VITALS: BP 131/102; PULSE 99; O2SAT 94
[2017-08-03 22:58] VITALS: TEMP 98.4
== END 2017-08-03 22:58 | disposition home or self-care (01) ==
LOC: EDUNIT#
DX: T69.9XXA Effect of reduced temperature, unspecified, initial encounter (principal); H02.843 Edema of right eye, unspecified eyelid; F17.200 Nicotine dependence, unspecified, uncomplicated; I25.2 Old myocardial infarction; J44.9 Chronic obstructive pulmonary disease, unspecified; I50.9 Heart failure, unspecified; W93.8XXA Exposure to other excessive cold of man-made origin, initial encounter

== ENCOUNTER 2017-08-07 07:25 | Inpatient (IN) | payer OTHER ==
--- NOTE | 2017-08-07 07:49 | EDPHY ---
H & P Time Seen by Provider: 08/07/17 07:26 HPI/ROS: HPI Frostbite to toes. 67-year-old male. Homeless. Alcoholic. [place] Complains of pain to his toes and fingers. Was sleeping outside in the cold all last night. Denies any trauma. ROS: Constitutional: No fever, no chills. No weakness. Eyes: No discharge. No changes in vision. ENT: No sore throat. No nasal congestion or rhinorrhea. Respiratory: No cough. No shortness of breath. Cardiac: No chest pain, no palpitations. Gastrointestinal: No abdominal pain, no vomiting, no diarrhea. Genitourinary: No hematuria. No dysuria or increased frequency with urination. Musculoskeletal: No back pain. No neck pain. No myalgias or arthralgias. Skin: No rashes. As above. Neurological: No headache. No focal weakness or altered sensation. Past medical history: Walking pneumonia, daily alcohol use, alcohol abuse, COPD , coronary artery disease. AAA repair. Social history: Chronically homeless. Alcohol abuse. Heavy smoker. Physical Exam: General Appearance: Alert, no distress. Dirty, disheveled. This patient is responding to questions appropriately and in full sentences. This patient appears well-hydrated and well-nourished. Head: Normocephalic atraumatic. Eyes: Pupils equal and round no pallor or injection. No lid edema, erythema or injection. ENT, Mouth: Mucous membranes are moist. Poor dentition. The pharyngeal tissues are unremarkable. No edema or swelling. No asymmetry suggestive of abscess. No erythema or exudates. Respiratory: There are no retractions, lungs are clear to auscultation with good air movement bilaterally. Cardiovascular: Regular rate and rhythm. No murmur. Gastrointestinal: Abdomen is soft and nontender, no masses, bowel sounds normal. No focal tenderness at McBurney's point. No Michaels sign. Neurological: Motor sensory function is grossly intact. Cranial nerves are normal. Gait is normal. Skin: Warm and dry, no rashes. See below. Musculoskeletal: Neck is supple and nontender. Extremities are symmetrical. All joints range without pain or impingement except noted. Deep frostbite with gangrene and weeping purulent inflamed flash proximal to this left foot distal big toe and distal 2nd toe. Skin flap abrasion to and tired distal tip of right big toe. Good capillary refill though. No evidence of deep frostbite to this digit. Other toes in both feet are cold to the touch but have good capillary refill and are without evidence of significant frostbite injury. All digits in the right and left hand are cold to the touch but without evidence of significant frostbite injury. Psychiatric: No agitation. No depression. Database: EKG: Imaging: Left 1st and 2nd toes: No obvious bony involvement. Soft tissue changes seen. Please see radiology report for further details. Interpreted by me. Right 1st toe: No obvious bony involvement or significant soft tissue changes. Interpreted by me. Procedures: Emergency department course: IV placed. The patient was started on warm IV fluids with 1 L to be given over the next hour. He was placed in a Carlos Hugger. His toes as described above were wrapped in a loose dry Kerlix gauze. General surgery, Dr. Ame Vela, paged at 8:00 a.m.. I center photos of this patient's frostbite injuries by cell phone. Waiting on reply. Patient given 800 mg of ibuprofen. Oral temperature is 36.8degrees. 9:30 a.m., awaiting consultation by Dr. Ame Vela. She has viewed the patient 's photographs and will see the patient in the emergency department. 9:35 a.m., Dr. Ame Vela is at the bedside. 10:15 a.m., spoke with Dr. Ame Vela. She feels that this patient is not currently infected and does not require IV antibiotics. She recommends finding a a bed for the patient at the homeless alf and then she will follow up with the patient on an outpatient basis through her wound care clinic. I discussed this with my charge nurse and case management. If we are unable to secure a bed at the homeless alf the patient will be admitted to the hospitalist service. Patient was showered in the emergency department. 11:25 a.m., unable to secure a bed at the [facility]. Discussed case with hospitalist. Patient accepted for admission under the hospitalist service. Patient admitted in stable condition. Differential Diagnosis: The differential diagnosis on this patient includes but is not limited to frostbite injuries to toes, homeless, alcohol abuse. This represents a partial list of diagnoses considered. These considerations are based on history, physical exam, past history, reassessment and diagnostic testing. Smoking Status: Current every day smoker Constitutional: Initial Vital Signs Temperature (C) 36.5 C 08/07/17 07:25 Heart Rate 115 H 08/07/17 07:25 Respiratory Rate 20 08/07/17 07:25 Blood Pressure 140/101 H 08/07/17 07:25 O2 Sat (%) 93 08/07/17 07:25 O2 Delivery Mode Room Air Allergies/Adverse Reactions: Penicillins Allergy (Verified 08/03/17 22:08) Home Medications: Medication Instructions Recorded NK [No Known Home Meds] 08/07/17 Medical Decision Making - Data Points Laboratory Results: Laboratory Results 08/07/17 08:18 08/07/17 08:18 Medications Given: Hydrocodone Bitart/Acetaminophen ([place] 5/325) 1 - 2 tab PO Q4HRS PRN PRN Reason: Pain, Moderate Able to Take PO Stop: 08/17/17 12:06 Last Admin: 08/08/17 15:07 Dose: 2 tab Enoxaparin Sodium (Lovenox) 40 mg SC DAILY KEVEN Stop: 02/04/18 08:59 Last Admin: 08/08/17 07:44 Dose: 40 mg Famotidine (Pepcid) 20 mg PO BID KEVEN Stop: 02/03/18 12:14 Last Admin: 08/08/17 07:42 Dose: 20 mg Folic Acid (Folic Acid) 1 mg PO DAILY KEVEN Stop: 02/03/18 12:14 Last Admin: 08/08/17 07:42 Dose: 1 mg Thiamine HCl 500 mg/ Sodium (Chloride) 105 mls @ 210 mls/hr IV DAILY KEVEN Stop: 08/10/17 12:14 Last Admin: 08/08/17 08:34 Dose: 105 mls Lorazepam (Ativan) 1 mg PO Q4HRS PRN PRN Reason: Agitation if able to take PO Stop: 02/03/18 12:10 Last Admin: 08/08/17 15:07 Dose: 1 mg Multivitamins (Tab-A-Patrice) 1 each PO DAILY KEVEN Stop: 02/03/18 12:14 Last Admin: 08/08/17 07:42 Dose: 1 each Discontinued Medications Sodium Chloride (Ns) 1,000 mls @ 0 mls/hr IV EDNOW ONE; Wide Open PRN Reason: Protocol Stop: 08/07/17 08:30 Last Admin: 08/07/17 08:37 Dose: 1,000 mls Magnesium Sulfate (Magnesium Sulf 2 Gm (Premix)) 50 mls @ 50 mls/hr IV ONCE ONE Stop: 08/07/17 13:10 Last Admin: 08/07/17 17:53 Dose: Not Given Sodium Chloride (Ns) 1,000 mls @ 100 mls/hr IV CONT KEVEN Stop: 02/03/18 12:14 Last Admin: 08/08/17 03:21 Dose: 1,000 mls Magnesium Sulfate (Magnesium Sulf 2 Gm (Premix)) 50 mls @ 50 mls/hr IV ONCE ONE Stop: 08/07/17 18:12 Last Admin: 08/07/17 18:26 Dose: 50 mls Ibuprofen (Motrin) 800 mg PO EDNOW ONE Stop: 08/07/17 08:30 Last Admin: 08/07/17 08:36 Dose: 800 mg Lorazepam (Ativan) 2 mg PO ONCE ONE Stop: 08/07/17 12:12 Last Admin: 08/07/17 13:22 Dose: 2 mg Departure - Departure Disposition: [facility] Inpatient Acute Clinical Impression: Frostbite injury to toes, Alcohol abuse Condition: Good
[2017-08-07 08:26] LABS: PLATELET COUNT 174 10^3/uL (150-400)
[2017-08-07] MEDS ORDERED: IBUPROFEN 800 MG TAB PO ONE (08:29)
[2017-08-07] MEDS ORDERED: NS 1,000 ML IV ONE (08:29)
[2017-08-07] MEDS ORDERED: ONDANSETRON 4 MG/2 ML VIAL IVP PRN (12:07)
[2017-08-07] MEDS ORDERED: ACETAMINOPHEN 325 MG TAB PO PRN (12:07)
[2017-08-07] MEDS ORDERED: ONDANSETRON DISINTEGRATING 4 MG TAB PO PRN (12:07)
[2017-08-07] MEDS ORDERED: MAGNESIUM SULF 2 GM/WATER 50 ML IV ONE ×2 (12:11→17:13)
[2017-08-07] MEDS ORDERED: LORazepam 2 MG/ML INJ IVP PRN (12:11)
[2017-08-07] MEDS ORDERED: LORazepam 1 MG TAB PO ONE (12:11)
--- NOTE | 2017-08-07 13:09 | CPEKG ---
Heart Rate: 91 RR Interval: 659 QRSD Interval: 158 QT Interval: 440 QTC Interval: 542 QRS [place]: -165 T Wave [place]: 229 EKG Severity - ABNORMAL ECG - EKG Impression: ATRIAL FLUTTER, A-RATE 227 EKG Impression: RIGHT BUNDLE BRANCH BLOCK Electronically Signed By: Violet Doan 07-Aug-2017 13:31:59
[2017-08-07] MEDS: THIAMINE HCL 500 MG in NS 100 ML IV SCH (13:22)
[2017-08-07] MEDS: NS 1,000 ML IV SCH (13:23)
[2017-08-07] MEDS: MULTIVITAMINS 1 EACH TAB PO SCH (13:28)
[2017-08-07] MEDS: FOLIC ACID 1 MG TAB PO SCH (13:29)
[2017-08-07] MEDS: FAMOTIDINE 20 MG TAB PO SCH ×2 (13:29→21:11)
--- NOTE | 2017-08-07 14:33 | WOCRNPDOC ---
WOCRN Advanced Assessment Note - Skin Integrity Problem, Advanced Assess Left First Toe Dressing Type: Adaptic, Kerlix Dressing Description: Intact Exudate Amount: Scant Exudate Color: Reddish/Yellow Integumentary Issue Intervention: Dressing Changed Samson Wound Tissue: Erythema, Swollen Samson Wound Swelling: Moderate Wound Bed Color: Black, Yellow Wound Bed Constitution: Mixed Loose & Adhered Slough/Eschar, Stable Eschar Site Odor: Moderate Site Measurement - Head-to-Toe Length X Width X Depth (cm): 4.1cmx3.9cmx eschar/ slough Skin Integrity Problem Comment: Distal aspect of L great toe is dry, stable eschar. Moving proximally, the wound transitions into moist, adhered eschar, and then to adhered moist slough. Nail is completely gone. Erythema and swelling noted throughout periwound tissues, consistent w/ frostbite injury. Patient denies pain in most distal aspect of toes, and reports some pain and sensitivity at the base of this digit. Goal at this time is to dry out necrotic tissue and protect site. Entire wound painted w/ Povidone/Iodine swab, covered in Adaptic Touch non-adherent contact layer, and secured w/ Renuka over the foot. Wound care will continue to monitor as site evolves. Left Second Toe Dressing Type: Adaptic, Kerlix Dressing Description: Intact Exudate Amount: None Integumentary Issue Intervention: Dressing Changed Samson Wound Tissue: Erythema, Swollen Samson Wound Swelling: Mild Wound Bed Color: Black Wound Bed Constitution: Unstable Eschar Site Measurement - Head-to-Toe Length X Width X Depth (cm): 1.8cmx1.1cmx eschar Skin Integrity Problem Comment: Moist eschar noted on distal aspect of this digit, w/ mild erythema and swelling samson-wound. Applied Povidone/Iodine swab to necrotic tissue w/ the goal of drying it out and preventing wet gangrene. Wound care will continue to follow as site evolves. Right First Toe Dressing Type: Adaptic, Kerlix Dressing Description: Intact Exudate Amount: Scant Exudate Color: Reddish/Yellow Exudate Characteristic(s): Serosanguinous Integumentary Issue Intervention: Dressing Changed, Silver Gel Applied, Conservative Sharp Bedside Debridement (removal of non-viable skin hanging off distal aspect of toe.) Samson Wound Tissue: Erythema, Swollen Samson Wound Swelling: Moderate Wound Bed Color: Black, Red Wound Bed Constitution: Red/[place] - Non Granular Tissue, Stable Eschar Site Odor: Moderate Site Measurement - Head-to-Toe Length X Width X Depth (cm): 0.5goi2qxg2.2cm Skin Integrity Problem Comment: Red, well-perfused wound bed noted to distal aspect of R 1st toe. Non-granular tissue in wound bed, appears to be partial- thickness. There are some traces of eschar along the wound margins. A small flap of non-viable skin w/ eschar was hanging off the distal aspect of this digit; I removed this flap w/ scissors. Swelling througout periwound tissues, and toenail on this digit is loose and will most likely fall off w/in the next day or so. Unable to assess tissue underlying the nail. Applied a very small bead of Silvasorb gel to the viable wound bed only, and covered entire digit w/ Adaptic Touch contact layer and Renuka. Wound care will continue to monitor. Right Second Toe Dressing Type: Adaptic, Kerlix Dressing Description: Intact Exudate Amount: None Exudate Characteristic(s): None Integumentary Issue Intervention: Dressing Changed Samson Wound Tissue: Erythema, Swollen Samson Wound Swelling: Mild Wound Bed Color: Black Wound Bed Constitution: Unstable Eschar Site Measurement - Head-to-Toe Length X Width X Depth (cm): 0.5cmx0.9cmx eschar Skin Integrity Problem Comment: Moist, unstable eschar noted to dorsal aspect of R 2nd toe. Discrete erythema and swelling in periwound tissues. Site painted w/ Povidone/iodine to dry the tissues out, followed by Adaptic Touch contact layer and Renuka.
[2017-08-07 16:00] LABS: INR 1.19 (0.83-1.16); PROTIME(PATIENT) 15.3 SEC (12.0-15.0)
--- NOTE | 2017-08-07 16:04 | ASMTCMCOM ---
CM Note CM Note Notes: Spoke with , pt has frostbite on his toes, he was found under a bridge. He is homeless and currently wiithdrawing. Apparently he is not welcome back to detention and also estranged from his and she does not wished to be called. DC Plan: TBD Date Signed: 08/07/2017 04:04 PM Electronically Signed By:Desire Avalos RN
[2017-08-07] MEDS: LORazepam 1 MG TAB PO PRN ×2 (17:00→21:11)
[2017-08-07] MEDS: HYDROCODONE/APAP 5/325 TAB PO PRN (17:25)
--- NOTE | 2017-08-07 18:15 | GHP ---
[f rep st] HISTORY AND PHYSICAL DATE OF ADMISSION: 08/07/2017 CHIEF COMPLAINT: Frostbite. HISTORY OF PRESENT ILLNESS: The patient is a 67-year-old homeless man, goes by 'Landry', who was brought in today to the emergency department when he was [place] under a bridge bypass. He reportedly slept outside all night. He has been in the area for at least a month and describes living in [place] and '[facility]'. He is estranged from his family and does not have any place to stay or local contacts. He reportedly was staying in a senior care in a permanent bed, but was not allowed to return there when the emergency department contacted them. The reason is unknown, but I asked Social Work to check on this. He denies any chest pain or shortness of breath. He denies foot pain. He denies any known fever. He has been staying outside frequently. He admits to significant chronic alcohol use. He denies having previous withdrawal seizures , but has had a take medication for detox previously. He denies any chest pain or shortness of breath. He says he is frequently incontinent of stool and urine , but cannot describe to me why or how frequently. He says he is followed occasionally at [facility] and was there a few days ago because of wrist pain after falling. He is unsure when his last bowel movement or urination was. ROS- 10 pt review completed, and negative except as noted above PAST MEDICAL HISTORY: Obesity, alcoholism, sleep apnea (not using CPAP), homelessness. He denies any chronic psychiatric illnesses, diabetes, hypertension, or heart failure. He does report having "lung issues," likely from chronic COPD, but he reports taking no medications. PAST SURGICAL HISTORY: He denies any previous surgeries. SOCIAL HISTORY: He is estranged from his family and denies any close contacts to notify. He has been in the local [place] area for approximately 4-6 weeks per his report. He had been staying at the [facility] in a "permanent bed, " but for some reason this has been stopped. He drinks an unknown amount of alcohol when available. He denies drug use. He is a smoker to variable amounts. FAMILY HISTORY: Noncontributory. ALLERGIES: penicillin. MEDICATIONS: He denies taking chronic medications. PHYSICAL EXAMINATION: VITAL SIGNS: Blood pressure is 143/79, pulse is 93, and respiration rate is 20. He is 97% on 2 L O2 nasal cannula. Temperature is 97.9. GENERAL: He is a very obese male, disheveled. Looks older than age. HEENT: Normocephalic, atraumatic. Extraocular movements are intact. Oropharynx: Poor dentition. MMM NECK: Supple. No lymphadenopathy or JVD noted. CARDIOVASCULAR: Tachy, regular. No murmur, rub, or gallop. LUNGS: Clear to auscultation bilaterally. ABDOMEN: Obese, soft, nontender. Unable to palpate hepatosplenomegaly. : Deferred. PSYCH: He is oriented to person. Somnolent (Ativan recently given). EXTREMITIES: He has bandages on his right wrist area. Hyperemic bilateral hands, with bruising and some slight swelling. 1+ edema in the bilateral lower extremities. Bilateral toes and feet are wrapped in bandages, and these were not removed as trim technician had just evaluated him and applied. Please see their note for details about his extremities. LABORATORY DATA: His white blood cell count was 7.39, hemoglobin 13.9, and platelet count 174; 78% neutrophils, 12% lymphocytes. INR was 1.19. Sodium 139 , potassium 4.4, chloride 105, CO2 25, BUN 10, creatinine 0.6, glucose 114, calcium 9.2, mag 1.4, bili 0.9, AST 20, ALT 22, alk phos 66, albumin 2.7. TSH of 1.73. Ethanol level was 12. EKG read as Aflutter and right bundle branch block, rate controlled. Personally revwd and agree. Toe x-rays showed arthritis. No subcutaneous gas. Some thickening of the soft tissues and no acute fractures on the right side. On the left side, there was minimal subcutaneous gas at the great toe, with some irregularity and thickening. No fractures. ASSESSMENT AND PLAN: 1. Bilateral lower extremity frostbite. General Surgery and Wound Care have been asked to participate in care. Discussed the care plan with Dr. Vela. For now, she would like to monitor the wounds and hold off on surgical debridement or amputation. Considering the extent of the frostbite damage, I have asked Social Work to try to intervene and see if he can return to a safe bed at the senior care versus bed at a skilled nursing or rehab facility. 2. Chronic alcoholism. He is placed on a detox protocol, along with IV fluids and IV B vitamins. We will monitor his symptoms closely. 3. Arrhythmia. TSH normal. Magnesium will be replaced. We will repeat the EKG in AM. He is cardiovascularly stable and placed on telemetry monitoring. Consider cardiology consult. 4. Homelessness. Please see above. I have asked Social Work/urban and regional planner to assist as able. 5. Reported sleep apnea. He is placed on oxygen as needed. 6. DVT prophylaxis: Lovenox. 7. PCP: [facility]. 8. Full code status. Disposition: Greater than 48 hours anticipated for wound care and alcohol detox protocol to ensure safety. Greater than 30 minutes in time spent reviewing the patient's chart, imaging studies, and coordination of care. /[id number]/MODL MTDD
--- NOTE | 2017-08-07 18:57 | PDMN ---
Medical Necessity Medical necessity: C/M review: est. > 2 MN LOS for eval and TX of acute and persistent bilateral lower extremity frostbite, arrhythmia requiring planned General Surgery consult, Wound Care consult, cardiac monitoring, IV fluids, IV Thiamine, CIWA protocol, alcohol detox, protocol, supplemental O2, pulse oximetry, acute inpt PT/OT, comorbid chronic alcoholism, obesity, reported sleep apnea, homelessness per H/P.
--- NOTE | 2017-08-07 20:41 | GCON ---
[f rep st] CONSULTATION DATE OF CONSULTATION: 08/07/2017 REASON FOR CONSULTATION: Frostbite injury bilateral lower extremities. HISTORY OF PRESENT ILLNESS: The patient is a 67-year-old man, who is homeless, and [place] bridge this [place]. He was complaining of pain to his fingers and toes. He slept outside in the cold last night. He was acutely intoxicated when he came in through the emergency room. He was a poor historian, but on second evaluation he was able to provide more of a story. He has had wounds present on his toes for approximately 2 days. He recently lost his toenail on his left side. He de nies fevers or chills. He does not have a history of poor wound healing. PAST MEDICAL HISTORY: Alcohol use, COPD, coronary artery disease. PAST SURGICAL HISTORY: AAA repair. SOCIAL HISTORY: He is homeless. He is estranged from his . He reports daily alcohol use and to bacco use. FAMILY HISTORY: Noncontributory to wound. ALLERGIES: Penicillin, but he does not know the reaction since he was a child. PHYSICAL EXAM: GENERAL: A very disheveled, dirty man, in no acute distress. Smells strongly of alc ohol and urine. Answers questions appropriately. HEENT: Normocephalic, atraumatic. No hearing def icits. Pupils equal and round. No scleral icterus. Mucous membranes moist. NECK: Trachea midline . RESPIRATORY: Clear to auscultation bilaterally. No increased work of breathing. CARDIOVASCULAR: Regular rate and rhythm. 1+ peripheral edema bilaterally. Dopplerable bilateral PT and DP pulses. SKIN: Warm. The wounds of his left lower extremity are worse than those on the right. He has esc chelsi at the tip of his 1st great toe, which appears stable and evolves into adherent slough more proxi andre. There is also eschar at the tip of his left 2nd toe. The eschar is dried. There is no activ e purulence, surrounding erythema, or evidence of active infection. Also of note, he is missing his left great toe toenail secondary to the wound. On the right side, he has an open wound at the distal aspect of his 1st great toe measuring approximately 1 x 1.5 cm with beefy red tissue in the base. T here is no eschar. His great toenail is loose, and I expect he will lose this in the next day or so. He also has a small wound on the tip of his right 2nd toe. These do not appear actively infected. LABORATORY DATA: Results reviewed. Lab work showed no evidence of leukocytosis or anemia. Electrol ytes were within normal limits. Blood alcohol is 12. He had x-rays performed in the ER, which showe d soft tissue changes, but no underlying evidence for osteomyelitis. IMPRESSION AND PLAN: The patient is a 67-year-old homeless man with frostbite injuries to his bilate ral lower extremities. I do not believe that he requires surgery at this time. I do not believe jeramy t he has an active infection, nor require IV antibiotics. We recommended 1 of 2 options. One would be discharged to a homeless longterm with close followup with the outpatient wound healing center. Th e second option would be admission to the hospitalist service, and we are happy to consult for wound care. We will also have the wound care nurse evaluate the patient if he is admitted. The patient wa s additionally evaluated by Dr. Ame Vela, who agrees with the above impression. /[id number]/MODL
[2017-08-08] MEDS: NS 1,000 ML IV SCH (03:21)
--- NOTE | 2017-08-08 05:45 | CPEKG ---
Heart Rate: 112 RR Interval: 536 P-R Interval: 182 QRSD Interval: 150 QT Interval: 404 QTC Interval: 552 P [place]: 0 QRS [place]: 173 T Wave [place]: -52 EKG Severity - ABNORMAL ECG - EKG Impression: SINUS TACHYCARDIA EKG Impression: RIGHT BUNDLE BRANCH BLOCK EKG Impression: ST DEPRESSION, CONSIDER ISCHEMIA, ANT-LAT LDS Electronically Signed By: Do Escobedo 08-Aug-2017 06:03:29
[2017-08-08 05:48] LABS: PLATELET COUNT 137 10^3/uL (150-400)
[2017-08-08] MEDS: FOLIC ACID 1 MG TAB PO SCH (07:42)
[2017-08-08] MEDS: FAMOTIDINE 20 MG TAB PO SCH ×2 (07:42→21:18)
[2017-08-08] MEDS: MULTIVITAMINS 1 EACH TAB PO SCH (07:42)
[2017-08-08] MEDS: LORazepam 1 MG TAB PO PRN ×3 (07:42→23:28)
[2017-08-08] MEDS: ENOXAPARIN 40 MG/0.4 ML SYR SC SCH (07:44)
--- NOTE | 2017-08-08 08:10 | SOAPPROG ---
SOAP Progress Note Assessment/Plan: Assessment: 67 yo with frostbite to bilateral 1st and 2nd toes [place] with betadine Monitor for infection Hope will not convert to wet gangrene S: Sleeping soundly O: Dressings intact Plan: 08/08/17 08:09 Objective: Vital Signs Temp Pulse Resp BP Pulse Ox 37.4 C 104 H 16 123/80 H 93 08/08/17 07:26 08/08/17 07:26 08/08/17 07:26 08/08/17 07:26 08/08/17 07:26 Laboratory Results 08/08/17 04:18 08/08/17 04:18 08/07/17 08/08/17 08/09/17 05:59 05:59 05:59 Intake Total 1300 Output Total 200 Balance 1100 PT 15.3 SEC (12.0-15.0) H 08/07/17 15:41 INR 1.19 (0.83-1.16) H 08/07/17 15:41 ICD10 Worksheet Patient Problems: Problems Problem Status Onset Alcohol abuse Acute Neck pain Acute Traumatic hematoma of occiput Acute Unwitnessed fall Acute
[2017-08-08] MEDS: THIAMINE HCL 500 MG in NS 100 ML IV SCH (08:34)
--- NOTE | 2017-08-08 10:40 | HOSPPROG ---
Hospitalist Progress Note Assessment/Plan: Patient is a 67-year-old homeless man who was brought to the emergency room after he was [place] bridge bypass. He slept outside. He had been seen at the group home but it is unclear why he has not been able to return. He does admit to chronic alcohol use. Today is my 1st encounter with the patient. Chart reviewed. * bilateral frostbite to his toes, 1st and 2nd toes -continued close monitoring and hopefully will not develop wet gangrene * chronic alcohol use -requiring Ativan this morning -not sure if would like to abstain *+c diff result in stool -having no diarrhea, will defer treatment, place in precautions *tachycardia -resolved w treating him w CIWA protocol * arrhythmia -reviewed both 12 lead ecg/ show aflutter w RBBB -patient not clear if old or new; no other records/ has no CP -check a trop * sleep apnea * homelessness * obesity with a BMI of 33 *thrombocytopenia -from alcohol use *Plan:spoke w KEITH, the patient has medicare, May require a SNF. Subjective: Ivon is very sedate, has no c/o pain. Objective: Vital Signs Temp Pulse Resp BP Pulse Ox 37.4 C 104 H 16 123/80 H 93 08/08/17 07:26 08/08/17 07:26 08/08/17 07:26 08/08/17 07:26 08/08/17 07:26 Laboratory Results 08/08/17 04:18 08/08/17 04:18 08/07/17 08/08/17 08/09/17 05:59 05:59 05:59 Intake Total 1300 Output Total 200 Balance 1100 PT 15.3 SEC (12.0-15.0) H 08/07/17 15:41 INR 1.19 (0.83-1.16) H 08/07/17 15:41 - Physical Exam Constitutional: chronically ill appearing, obese, uncomfortable, unkempt Eyes: PERRL Ears, Nose, Mouth, Throat: hearing normal Cardiovascular: regular rate and rhythym Respiratory: no respiratory distress, rhonchi Skin: warm, other (dry skin on hands, small scratches that appear to be healing) Neurologic: other (awakens w verbal stimuli) ICD10 Worksheet Patient Problems: Problems Problem Status Onset Alcohol abuse Acute Neck pain Acute Traumatic hematoma of occiput Acute Unwitnessed fall Acute
--- NOTE | 2017-08-08 10:55 | ASMTCMCOM ---
CM Note CM Note Notes: Spoke w/ADVERTISING PRODUCTION MANAGER, pt will be in hospital for a few more days, d/t frostbitten toes, also being checked for flu. PT/OT to eval, KEITH will continue to follow. DC Plan: TBD Date Signed: 08/08/2017 10:55 AM Electronically Signed By:Desire Avalos RN
[2017-08-08] MEDS: HYDROCODONE/APAP 5/325 TAB PO PRN (15:07)
--- NOTE | 2017-08-09 08:20 | HOSPPROG ---
Hospitalist Progress Note Assessment/Plan: Patient is a 67-year-old homeless man who was brought to the emergency room after he was found [place] a bridge bypass. He slept outside. [facility] had been [facility] but it is unclear why he has not been able to return. He does admit to chronic alcohol use. * bilateral frostbite to his toes, 1st and 2nd toes -continued close monitoring and hopefully will not develop wet gangrene *+ coronavirus -respiratory precautions * chronic alcohol use -says he wants to quit drinking -doing ok without alcohol -on iv thiamine, will go on oral tomorrow *+c diff result in stool -having no diarrhea, will defer treatment, place in precautions *tachycardia -resolved w treating him w CIWA protocol * arrhythmia -reviewed both 12 lead ecg/ show aflutter w RBBB -patient not clear if old or new; no other records/ has no CP -troponin is negative * sleep apnea * homelessness * obesity with a BMI of 33 *thrombocytopenia -from alcohol use *Plan:spoke w KEITH, the patient has medicare, May require a SNF. Subjective: Ivon has no complaints, appetite is good. Objective: Vital Signs Temp Pulse Resp BP Pulse Ox 36.6 C 84 18 129/98 H 96 08/09/17 07:23 08/09/17 07:23 08/09/17 07:23 08/09/17 07:23 08/09/17 07:23 Microbiology 08/08/17 11:30 Respiratory Panel (PCR) - Final Nasal, Sinus - [place] Viral Transport Coronavirus Nl63 Detected 08/08/17 08:15 Gastrointestinal Tract Panel (PCR) - Final Stool Clostridium Difficile Detected Laboratory Results 08/08/17 04:18 08/08/17 04:18 08/08/17 08/09/17 08/10/17 05:59 05:59 05:59 Intake Total 1300 Output Total 200 Balance 1100 PT 15.3 SEC (12.0-15.0) H 08/07/17 15:41 INR 1.19 (0.83-1.16) H 08/07/17 15:41 - Physical Exam Constitutional: chronically ill appearing, unkempt Eyes: PERRL Ears, Nose, Mouth, Throat: hearing normal Cardiovascular: regular rate and rhythym Respiratory: no respiratory distress, rhonchi (few) Gastrointestinal: normoactive bowel sounds Skin: warm Musculoskeletal: generalized weakness Psychiatric: interacting appropriately ICD10 Worksheet Patient Problems: Problems Problem Status Onset Alcohol abuse Acute Neck pain Acute Traumatic hematoma of occiput Acute Unwitnessed fall Acute
[2017-08-09] MEDS: ENOXAPARIN 40 MG/0.4 ML SYR SC SCH (08:55)
[2017-08-09] MEDS: MULTIVITAMINS 1 EACH TAB PO SCH (08:57)
[2017-08-09] MEDS: FAMOTIDINE 20 MG TAB PO SCH ×2 (08:57→21:16)
[2017-08-09] MEDS: FOLIC ACID 1 MG TAB PO SCH (08:57)
[2017-08-09] MEDS: THIAMINE HCL 500 MG in NS 100 ML IV SCH (08:58)
[2017-08-09] MEDS ORDERED: FLU VACC QS 2017-18 (3YR+)/PF 0.5 ML SYR (FLUARIX QUAD) IM ONE (09:23)
--- NOTE | 2017-08-09 09:43 | SOAPPROG ---
SOAP Progress Note Assessment/Plan: Assessment/Plan: 67-year-old homeless male with frostbite to bilateral 1st and 2nd toes left greater than right - Austin continues to do well, stating that his pain is well controlled. He is neuro intact, noting sensation to both toes and can wiggle his toes on command. - all toes remain black without signs of wet gangrene. Dressing successfully changed at the bedside today -disposition still remains an issue as he was kicked out of his prison for bringing alcohol in. 08/09/17 09:41 Subjective: Sleepy Objective: Vital Signs Temp Pulse Resp BP Pulse Ox 36.6 C 84 18 129/98 H 96 08/09/17 07:23 08/09/17 07:23 08/09/17 07:23 08/09/17 07:23 08/09/17 07:23 Microbiology 08/08/17 11:30 Respiratory Panel (PCR) - Final Nasal, Sinus - [place] Viral Transport Coronavirus Nl63 Detected 08/08/17 08:15 Gastrointestinal Tract Panel (PCR) - Final Stool Clostridium Difficile Detected Laboratory Results 08/08/17 04:18 08/08/17 04:18 08/08/17 08/09/17 08/10/17 05:59 05:59 05:59 Intake Total 1300 Output Total 200 Balance 1100 PT 15.3 SEC (12.0-15.0) H 08/07/17 15:41 INR 1.19 (0.83-1.16) H 08/07/17 15:41 ICD10 Worksheet Patient Problems: Problems Problem Status Onset Alcohol abuse Acute Neck pain Acute Traumatic hematoma of occiput Acute Unwitnessed fall Acute
--- NOTE | 2017-08-10 07:56 | HOSPPROG ---
Hospitalist Progress Note Assessment/Plan: 67-year-old homeless man who was brought to the emergency room after he was [place] a bridge bypass. He slept outside. He had a permanent bed at the half-way but was expelled due to bringing in alcohol. He does admit to chronic alcohol use and intermittent tobacco abuse. Chart reviewed. 1st encounter with patient. ECGs personally interpreted. * bilateral frostbite to his toes, 1st and 2nd toes -continued close monitoring and hopefully will not develop wet gangrene *+ coronavirus -respiratory precautions -pt reports productive cough and dyspnea with wheezing and rhonchi on lung auscultation -will add Mucinex and Tessalon Pearles -check CXR due to hypoxia * chronic alcohol use -says he wants to quit drinking -doing ok without alcohol -on iv thiamine, will go on oral tomorrow *+c diff result in stool -having no diarrhea but reports occasional bouts of diarrhea -will defer treatment for now *tachycardia -resolved w treating him w CIWA protocol * PAFl -reviewed both 12 lead ecg/ show aflutter w RBBB -HR now slower recheck ECG today -[id number] of at least 1 (age) but pt claims previous stroke but has no clear recollection of when/where/how that was diagnosed and head CT shows atrophy and microvascular ischemic disease but no previous stroke -check echo * sleep apnea * homelessness * obesity with a BMI of 33 *thrombocytopenia -from alcohol use *Plan:spoke w CM, and they are looking into placement. Subjective: Reports cough. Also has had incontinence of stool and urine but now while he has been here. Objective: Vital Signs Temp Pulse Resp BP Pulse Ox 97.5 F 75 19 128/87 H 91 L 08/10/17 04:00 08/10/17 04:00 08/10/17 04:00 08/10/17 04:00 08/10/17 04:00 Laboratory Results 08/08/17 04:18 08/08/17 04:18 08/09/17 08/10/17 08/11/17 05:59 05:59 05:59 Intake Total 1920 Output Total 700 200 Balance 1220 -200 PT 15.3 SEC (12.0-15.0) H 08/07/17 15:41 INR 1.19 (0.83-1.16) H 08/07/17 15:41 - Physical Exam Constitutional: appears nourished, not in pain Eyes: PERRL Ears, Nose, Mouth, Throat: hearing normal Cardiovascular: regular rate and rhythym, no murmur, rub, or gallop Respiratory: reduced air movement, expiratory wheeze, bronchial breath sounds Gastrointestinal: soft, non-tender abdomen Genitourinary: No tomas in urethra Skin: other (YOSSI) Psychiatric: not anxious ICD10 Worksheet Patient Problems: Problems Problem Status Onset Alcohol abuse Acute Neck pain Acute Traumatic hematoma of occiput Acute Unwitnessed fall Acute
--- NOTE | 2017-08-10 08:13 | SOAPPROG ---
SOAP Progress Note Assessment/Plan: Assessment/Plan: 67-year-old homeless male with frostbite to bilateral 1st and 2nd toes left greater than right - Doing well, denies pain. Toes on both feet looking better today R>L. L great toe is sloughing some tissue but nothing that looks like wet gangrene. - cont dresing changes: betadine, Adaptiq, Cling. - Patient to shower today - He has medicare, will look for placement which he stated he was amenable to 08/09/17 09:41 08/10/17 08:11 Subjective: No complaints, denies pain Objective: Vital Signs Temp Pulse Resp BP Pulse Ox 36.4 C 75 19 128/87 H 91 L 08/10/17 04:00 08/10/17 04:00 08/10/17 04:00 08/10/17 04:00 08/10/17 04:00 Laboratory Results 08/08/17 04:18 08/08/17 04:18 08/09/17 08/10/17 08/11/17 05:59 05:59 05:59 Intake Total 1920 Output Total 700 200 Balance 1220 -200 PT 15.3 SEC (12.0-15.0) H 08/07/17 15:41 INR 1.19 (0.83-1.16) H 08/07/17 15:41 ICD10 Worksheet Patient Problems: Problems Problem Status Onset Alcohol abuse Acute Neck pain Acute Traumatic hematoma of occiput Acute Unwitnessed fall Acute
[2017-08-10] MEDS: ENOXAPARIN 40 MG/0.4 ML SYR SC SCH (08:28)
[2017-08-10] MEDS: MULTIVITAMINS 1 EACH TAB PO SCH (08:29)
[2017-08-10] MEDS: FAMOTIDINE 20 MG TAB PO SCH ×2 (08:29→20:48)
[2017-08-10] MEDS: FOLIC ACID 1 MG TAB PO SCH (08:29)
[2017-08-10] MEDS: THIAMINE HCL 500 MG in NS 100 ML IV SCH (09:18)
[2017-08-10] MEDS ORDERED: BENZONATATE 100 MG CAP PO PRN (12:59)
--- NOTE | 2017-08-10 13:08 | ASMTCMCOM ---
CM Note CM Note Notes: Per [employer]scripts, patient has been accepted by [facility]. Will anticipate discharge there when he is medically stable. Current CM Discharge plan: [facility] Date Signed: 08/10/2017 01:09 PM Electronically Signed By:Qi Jalloh RN
[2017-08-10] MEDS: guaiFENesin 600 MG TAB.ER PO SCH ×2 (13:14→20:48)
--- NOTE | 2017-08-10 14:11 | CPEKG ---
Heart Rate: 69 RR Interval: 870 QRSD Interval: 154 QT Interval: 580 QTC Interval: 622 QRS [place]: 139 T Wave [place]: -71 EKG Severity - ABNORMAL ECG - EKG Impression: ATRIAL FIBRILLATION EKG Impression: RIGHT BUNDLE BRANCH BLOCK Electronically Signed By: Mauri Moscoso 11-Aug-2017 07:45:32
--- NOTE | 2017-08-11 08:13 | SOAPPROG ---
SOAP Progress Note Assessment/Plan: Assessment: 67yo homeless man admitted with dry necrosis frostbite of bilateral toes 1 and 2. Also +coronavirus, +c. 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 Vela S: no complaints this morning. No pain in bilateral feet. O: sitting up in chair eating breakfast No increased WOB L 2nd toe with dry necrosis at the distal tip. L 1st toe missing toenail, some slough proximally, dry necrosis of distal tip. No evidence of infection R 2nd and 1st toes with dry necrosis of distal tips, no evidence of infection Objective: Vital Signs Temp Pulse Resp BP Pulse Ox 36.3 C 73 20 132/102 H 94 08/11/17 08:00 08/11/17 08:00 08/11/17 08:00 08/11/17 08:00 08/11/17 08:00 Laboratory Results 08/08/17 04:18 08/08/17 04:18 08/10/17 08/11/17 08/12/17 05:59 05:59 05:59 Intake Total 1920 2000 Output Total 700 200 Balance 1220 1800 PT 15.3 SEC (12.0-15.0) H 08/07/17 15:41 INR 1.19 (0.83-1.16) H 08/07/17 15:41 ICD10 Worksheet Patient Problems: Problems Problem Status Onset Afib Acute Alcohol abuse Acute Neck pain Acute Traumatic hematoma of occiput Acute Unwitnessed fall Acute
--- NOTE | 2017-08-11 09:43 | WOCRNPDOC ---
ATTILA Advanced Assessment Note - Skin Integrity Problem, Advanced Assess Left First Toe Dressing Type: Open to Air Exudate Amount: Scant Exudate Characteristic(s): Serosanguinous Kailey Wound Tissue: Erythema (minimal) Kailey Wound Swelling: Moderate Wound Bed Color: Black, Brown, Red, Yellow Wound Bed Constitution: Granulation Tissue (20%), Adhered Slough (20%), Unstable Eschar (60%) Wound Edges: Attached Site Measurement - Head-to-Toe Length X Width X Depth (cm): 6x5.5x0.2 Skin Integrity Problem Comment: Nail missing. Wound evolving. Goal is to keep the area from getting infected while the extent of the necrosis declares its self. Discussed with Dr Vela and Lucinda RHOADES. Will transition into painting toe with betadine and allow wound to dry up and eschar to stabilize. Wound care will round again next week. Also reported plan to [facility]. Left Second Toe Dressing Type: Open to Air Exudate Amount: None Wound Bed Constitution: Stable Eschar Site Measurement - Head-to-Toe Length X Width X Depth (cm): 2.5x1.3xeschar Right First Toe Dressing Type: Open to Air Exudate Amount: Minimal Exudate Characteristic(s): Sanguinopurulent Wound Bed Color: Black Wound Bed Constitution: Unstable Eschar Site Measurement - Head-to-Toe Length X Width X Depth (cm): 5x4x0.1 Skin Integrity Problem Comment: Purulence draining from under nail bed. Reported to Lucinda RHOADES. Right Second Toe Dressing Type: Open to Air Exudate Amount: Minimal Exudate Characteristic(s): Sanguinopurulent Wound Bed Color: Black Wound Bed Constitution: Unstable Eschar Site Measurement - Head-to-Toe Length X Width X Depth (cm): 2x1x0.1 Skin Integrity Problem Comment: Purulent drainage from under nail noted. Also reported to Lucinda RHOADES.
[2017-08-11] MEDS: guaiFENesin 600 MG TAB.ER PO SCH ×2 (09:58→20:13)
[2017-08-11] MEDS: ENOXAPARIN 40 MG/0.4 ML SYR SC SCH (09:58)
[2017-08-11] MEDS: FAMOTIDINE 20 MG TAB PO SCH ×2 (09:59→20:13)
[2017-08-11] MEDS: THIAMINE HCL 100 MG TAB PO SCH (09:59)
[2017-08-11] MEDS: MULTIVITAMINS 1 EACH TAB PO SCH (09:59)
[2017-08-11] MEDS: FOLIC ACID 1 MG TAB PO SCH (09:59)
[2017-08-11] MEDS ORDERED: FUROSEMIDE 20 MG/2 ML VIAL IVP ONE (10:19)
--- NOTE | 2017-08-11 12:10 | HOSPPROG ---
Hospitalist Progress Note Assessment/Plan: 67-year-old homeless man who was brought to the emergency room [place] he was [place] bypass. He slept outside. [facility] a permanent bed at the senior care but was expelled due to bringing in alcohol. He does admit to chronic alcohol use and intermittent tobacco abuse. Chart reviewed. 1st encounter with patient. ECGs personally interpreted. * bilateral frostbite to his toes, 1st and 2nd toes -continued close monitoring and hopefully will not develop wet gangrene -D/W surgery, stable. still monitor *+ coronavirus -respiratory precautions -pt reports productive cough and dyspnea with wheezing and rhonchi on lung auscultation -Mucinex and Tessalon Pearles -CXR shows possible CHF *Acute hypoxemia -related to possible chf -give lasix 20mg now -follow * chronic alcohol use -says he wants to quit drinking -doing ok without alcohol -8PO thiamine *+c diff result in stool -having no diarrhea but reports occasional bouts of diarrhea -will defer treatment for now *tachycardia -resolved w treating him w CIWA protocol * PAFl -reviewed both 12 lead ecg/ show aflutter w RBBB -HR now slower recheck ECG today -[id number] of at least 1 (age) but pt claims previous stroke but has no clear recollection of when/where/how that was diagnosed and head CT shows atrophy and microvascular ischemic disease but no previous stroke -check echo, pending * sleep apnea * homelessness * obesity with a BMI of 33 *thrombocytopenia -from alcohol use *Plan:spoke w CM, he will go to [place] in the am Subjective: Feeling better. Still has cough. No other issues. Objective: Vital Signs Temp Pulse Resp BP Pulse Ox 36.2 C 71 20 140/91 H 95 08/11/17 10:46 08/11/17 10:46 08/11/17 10:46 08/11/17 10:46 08/11/17 10:46 Laboratory Results 08/08/17 04:18 08/08/17 04:18 08/10/17 08/11/17 08/12/17 05:59 05:59 05:59 Intake Total 1920 2000 Output Total 700 200 1 Balance 1220 1800 -1 PT 15.3 SEC (12.0-15.0) H 08/07/17 15:41 INR 1.19 (0.83-1.16) H 08/07/17 15:41 - Physical Exam Constitutional: appears nourished, not in pain, chronically ill appearing Eyes: PERRL, anicteric sclera, EOMI Ears, Nose, Mouth, Throat: moist mucous membranes, hearing normal, ears appear normal Cardiovascular: irregularly irregular, No JVD, No edema Respiratory: no respiratory distress, no rales or rhonchi, reduced air movement Gastrointestinal: normoactive bowel sounds, No tenderness, No ascites Skin: warm, erythema, No rash Musculoskeletal: no joint effusions, muscular tenderness, generalized weakness Neurologic: AAOx3 Psychiatric: not anxious, not encephalopathic, thought process linear, poor insight, poor judgement ICD10 Worksheet Patient Problems: Problems Problem Status Onset Afib Acute Traumatic hematoma of occiput Acute Neck pain Acute Unwitnessed fall Acute Alcohol abuse Acute
--- NOTE | 2017-08-11 13:22 | ECHO ---
[email or web address] [address] Main: [phone] Fax: Transthoracic Echocardiogram Name: LUCAS DICKERSON MR#: [id number] Study Date: 08/11/2017 Study Time: 11:33 AM Date of : 1950 Age: 67 year(s) Height: 182.9 cm (72 in.) Weight: 113.4 kg (250 lb.) BSA: 2.34 m2 Gender: Male Examination: Echo Indication: Atrial flutter/frostbite Image Quality: Contrast: Requested by: Molly Mallory BP: 140 mmHg/91 mmHg Heart Rate: Rhythm: Indication: Atrial flutter/frostbite Procedure Staff Wire Machine Operator: Radha Rene Reading Physician: Anthony Bates Requesting Provider: Conclusions: Limited study. No pericardial effusion. Reduced LV systolic function with estimates between 45 and 50%. Reduced RV systolic function. Biatrial enlargement. Aortic valve calcification without stenosis or regurgitation. Ascending aorta 4.5 cm. Trileaflet aortic valve. Normal right ventricular systolic pressure. Measurements: Chambers Valvular Assessment AV/MV Valvular Assessment TV/PV Normal Normal Normal Name Value Range Name Value Range Name Value Range Ao Sia (MM): 3.6 cm (2.2 cm-3.7 AV Vmax: 1.22 m/s (1 m/s-1.7 TR Vmax: 2.28 mm/s ( - ) cm) m/s) TR PGmax: 21 mmHg ( - ) IVSd (2D): 1.2 cm (0.6 cm-1.1 AV maxP mmHg ( - ) syst. PAP: 26 mmHg ( - ) cm) MV E Vmax: 0.80 m/s ( - ) LVDd (2D): 5.0 cm (4.2 cm-5.9 MV A Vmax: 0.61 m/s ( - ) cm) MV E/A: 1.31 ( - ) LVDs (2D): 4.7 cm (2.1 cm-4 cm) LVPWd (2D): 0.4 cm (0.6 cm-1 cm) LVEF (2D): 16 (>=54 %) EF Range: 40-45 % Continued Measurements: Chambers Valvular Assessment AV/MV Valvular Assessment TV/PV Name Value Name Value Name Value LADs: 4.7 cm MV E' Septal: 0.04 m/s CVP (est.): 5 mmHg LADs Lon.0 cm MV E/E' Septal: 19.80 LA Area: 25.4 cm2 MV E/E' Lateral: 7.90 Patient: LUCAS DICKERSON Study Date: 08/11/2017 Page 1 of 2 11:33 AM Additional Vessels Name Value Ao Ascendin.5 cm Findings: Left Ventricle: Normal size left ventricle. The ejection fraction is estimated to be 40-45 %. septal dyskinesis. Ejection fraction difficult to ascertain. 45-50% rough estimate.. Right Ventricle: Normal size right ventricle. Moderately reduced RV function. Left Atrium: The left atrium is mildly dilated. Right Atrium: The right atrium is mildly to moderately dilated. Mitral Valve: The mitral valve is normal in appearance. Mild mitral valve regurgitation is present. Aortic Valve: The aortic valve is tri-leaflet. Mild aortic cusp calcification is noted. Tricuspid Valve: The tricuspid valve appears normal. Mild tricuspid regurgitation is present. The pulmonary artery pressure is normal. Pulmonic Valve: The pulmonic valve is normal in appearance and function. Trivial pulmonic valve regurgitation. Aorta: Mildly dilated ascending aorta measuring 4.5 cm. Pericardium: Trivial anterior pericardial effusion. (No Signature Object) Patient: LUCAS DICKERSON Study Date: 08/11/2017 Page 2 of 2 11:33 AM [id number]
[2017-08-12] MEDS: ENOXAPARIN 40 MG/0.4 ML SYR SC SCH (10:07)
[2017-08-12] MEDS: MULTIVITAMINS 1 EACH TAB PO SCH (10:08)
[2017-08-12] MEDS: THIAMINE HCL 100 MG TAB PO SCH (10:08)
[2017-08-12] MEDS: FOLIC ACID 1 MG TAB PO SCH (10:08)
[2017-08-12] MEDS: guaiFENesin 600 MG TAB.ER PO SCH ×2 (10:08→20:07)
[2017-08-12] MEDS: FAMOTIDINE 20 MG TAB PO SCH ×2 (10:08→20:07)
--- NOTE | 2017-08-12 10:57 | PDIAF ---
- Diagnosis Diagnosis: frostbite Code Status: Full Code - Medication Management Discharge Medications: Medications to Continue on Transfer Acetaminophen [Tylenol 325mg (*)] 650 mg PO Q4HRS PRN tab 08/12/17 [Last Taken Unknown] Enoxaparin [Lovenox 40 MG (*)] 40 mg SC DAILY syr 08/12/17 [Last Taken Unknown] Famotidine [Pepcid 20 MG (*)] 20 mg PO BID tab 08/12/17 [Last Taken Unknown] Folic Acid [Folic Acid 1 MG (*)] 1 mg PO DAILY tab 08/12/17 [Last Taken Unknown ] Hydrocodone/APAP 5/325 [[place] 5/325 (*)] 1 - 2 tab PO Q4HRS PRN tab 08/12/17 [ Last Taken Unknown] LORazepam [Ativan (*)] 1 mg PO Q4HRS PRN tab 08/12/17 [Last Taken Unknown] Multivitamins [Multivitamin (*)] 1 each PO DAILY tab 08/12/17 [Last Taken Unknown] Thiamine HCl [Vitamin B-1] 100 mg PO DAILY tab 08/12/17 [Last Taken Unknown] guaiFENesin [Mucinex 600 MG (*)] 1,200 mg PO BID tab.er 08/12/17 [Last Taken Unknown] Discharge Medications: Refer to the Discharge Home Medication list for PRN reason. PICC Care - Routine: N/A - Orders Services needed: Registered Nurse, Physical Therapy, Occupational Therapy Isolation Type: CDIFF Isolation, Droplet Isolation Diet Recommendation: no restrictions on diet - Follow Up Care Current Providers and Referrals: NONE *PRIMARY CARE P,. [Primary Care Provider] - As per Instructions
--- NOTE | 2017-08-12 15:07 | ASMTCMCOM ---
CM Note CM Note Notes: Received call from Elisa at [facility], states she did not realize that pt was under precautions and needs a private room which they do not have. She contacted [facility] and requests we send the referral to them that they could likely take him. CM faxed referral and d/w pt, he is amenable to change in SNF. Date Signed: 08/12/2017 03:07 PM Electronically Signed By:Desire Avalos RN
--- NOTE | 2017-08-12 15:24 | GDS ---
[f rep st] DISCHARGE SUMMARY DISCHARGE DIAGNOSES: 1. Bilateral frostbite to 1st and 2nd toes. 2. Coronavirus. 3. Acute hypoxemia. 4. Chronic alcohol use. 5. Tachycardia. 6. Positive Clostridium difficile stool. 7. Paroxysmal atrial fibrillation. 8. Sleep apnea. 9. Homelessness. CONSULTATION: General Surgery. PHYSICAL EXAM: GENERAL: The patient is alert. VITAL SIGNS: Afebrile at 36.4 , pulse 74, respiratory rate is 18, blood pressure is 118/76. The patient is saturating 91% on 2 L. I have seen and evaluated the patient on the day of discharge. HOSPITAL COURSE: The patient is a 67-year-old, homeless male, who was brought to the emergency room after being found [place] under a bridge. He was evaluated and diagnosed with: 1. Bilateral frostbite to his 1st and 2nd toes. During this hospitalization, he received a consultation from General Surgery. Wound care was performed. No aggressive intervention was required during this hospital course. He will continue to require wound care and further close monitoring. 2. Positive Coronavirus. This is responding well to supportive management, with no further intervention warranted. 3. Acute hypoxemia. This is multifactorial. The patient does have a history of CHF. It is likely that he requires supplemental oxygen at baseline, but given his social situation is unable to obtain this. This will continue to be monitored. 4. Chronic alcohol use. He is on oral thiamine. He has no signs of withdrawal , and states he would like to quit drinking alcohol. 5. Positive C diff. The patient was not having diarrhea during this hospitalization. No treatment is indicated at this time. 6. Tachycardia. This has resolved with [place] protocol and treatment. 7. Paroxysmal atrial fibrillation. The patient is a poor candidate for anticoagulation. His heart rate is stable and rate controlled. DISPOSITION: The patient will be discharged to [facility] for further physical therapy and occupational therapy. DISCHARGE MEDICATIONS: Please refer to EMR form. The patient was not on any previously prescribed home medications. WOUND CARE INSTRUCTIONS: To continue wound care on a daily basis. FOLLOWUP: Will be at [facility]. Dr eVla in 1 week and [facility] wound care I spent greater than 35 minutes in the care, coordination, and management of this patient's disposition. /[id number]/MODL MTDD
--- NOTE | 2017-08-12 17:09 | ASMTCMCOM ---
CM Note CM Note Notes: Discharge cancelled, [facility] can't take him today. Will follow up tomorrow. Date Signed: 08/12/2017 05:09 PM Electronically Signed By:Desire Avalos RN
--- NOTE | 2017-08-12 18:30 | HOSPPROG ---
Hospitalist Progress Note Assessment/Plan: 67-year-old homeless man who was brought to the emergency room [place] was [place]. He slept outside. He had a permanent bed at the longterm but was expelled due to bringing in alcohol. He does admit to chronic alcohol use and intermittent tobacco abuse. * bilateral frostbite to his toes, 1st and 2nd toes -continued close monitoring and hopefully will not develop wet gangrene -D/W surgery, stable. still monitor *+ coronavirus -respiratory precautions -pt reports productive cough and dyspnea with wheezing and rhonchi on lung auscultation -Mucinex and Tessalon Pearles -CXR shows possible CHF *Acute hypoxemia -related to possible chf -give lasix 20mg now -follow * chronic alcohol use -says he wants to quit drinking -doing ok without alcohol -8PO thiamine *+c diff result in stool -having no diarrhea but reports occasional bouts of diarrhea -will defer treatment for now *tachycardia -resolved w treating him w CIWA protocol * PAFl -reviewed both 12 lead ecg/ show aflutter w RBBB -HR now slower recheck ECG today -[id number] of at least 1 (age) but pt claims previous stroke but has no clear recollection of when/where/how that was diagnosed and head CT shows atrophy and microvascular ischemic disease but no previous stroke -check echo, pending * sleep apnea * homelessness * obesity with a BMI of 33 *thrombocytopenia -from alcohol use *Plan:spoke w CM, he will go to SNF in am Subjective: Up in chair. Still having cough. Objective: Vital Signs Temp Pulse Resp BP Pulse Ox 36.4 C 84 14 105/64 91 L 08/12/17 15:39 08/12/17 15:39 08/12/17 15:39 08/12/17 15:39 08/12/17 15:39 Microbiology 08/07/17 15:41 Blood Culture - Final Blood Laboratory Results 08/08/17 04:18 08/08/17 04:18 08/11/17 08/12/17 08/13/17 05:59 05:59 05:59 Intake Total 2000 300 Output Total 200 1 Balance 1800 299 PT 15.3 SEC (12.0-15.0) H 08/07/17 15:41 INR 1.19 (0.83-1.16) H 08/07/17 15:41 - Physical Exam Constitutional: chronically ill appearing, uncomfortable Eyes: PERRL, anicteric sclera Ears, Nose, Mouth, Throat: moist mucous membranes, hearing normal Cardiovascular: No JVD, No tachycardia Respiratory: no respiratory distress, reduced air movement Gastrointestinal: normoactive bowel sounds, No tenderness Skin: warm, erythema Musculoskeletal: normal joint ROM, generalized weakness Neurologic: AAOx3 Psychiatric: not anxious, not encephalopathic, thought process linear ICD10 Worksheet Patient Problems: Problems Problem Status Onset Afib Acute Traumatic hematoma of occiput Acute Neck pain Acute Unwitnessed fall Acute Alcohol abuse Acute
[2017-08-13] MEDS: guaiFENesin 600 MG TAB.ER PO SCH (10:20)
[2017-08-13] MEDS: THIAMINE HCL 100 MG TAB PO SCH (10:20)
[2017-08-13] MEDS: ENOXAPARIN 40 MG/0.4 ML SYR SC SCH (10:20)
[2017-08-13] MEDS: MULTIVITAMINS 1 EACH TAB PO SCH (10:20)
[2017-08-13] MEDS: FOLIC ACID 1 MG TAB PO SCH (10:20)
[2017-08-13] MEDS: FAMOTIDINE 20 MG TAB PO SCH (10:21)
--- NOTE | 2017-08-13 11:39 | PDIAF ---
- Diagnosis Diagnosis: frostbite Code Status: Full Code - Medication Management Discharge Medications: Medications to Continue on Transfer Acetaminophen [Tylenol 325mg (*)] 650 mg PO Q4HRS PRN tab 08/12/17 [Last Taken Unknown] Enoxaparin [Lovenox 40 MG (*)] 40 mg SC DAILY syr 08/12/17 [Last Taken Unknown] Famotidine [Pepcid 20 MG (*)] 20 mg PO BID tab 08/12/17 [Last Taken Unknown] Folic Acid [Folic Acid 1 MG (*)] 1 mg PO DAILY tab 08/12/17 [Last Taken Unknown ] Hydrocodone/APAP 5/325 [[place] 5/325 (*)] 1 - 2 tab PO Q4H PRN #10 tab 08/12/17 [ Last Taken Unknown] LORazepam [Ativan (*)] 0.5 mg PO Q6 #10 tab 08/12/17 [Last Taken Unknown] Multivitamins [Multivitamin (*)] 1 each PO DAILY tab 08/12/17 [Last Taken Unknown] Thiamine HCl [Vitamin B-1] 100 mg PO DAILY tab 08/12/17 [Last Taken Unknown] guaiFENesin [Mucinex 600 MG (*)] 1,200 mg PO BID tab.er 08/12/17 [Last Taken Unknown] Hydrocodone/APAP 5/325 [[place] 5/325 (*)] 1 - 2 tab PO Q4HRS PRN tab 08/13/17 [ Last Taken Unknown] LORazepam [Ativan (*)] 1 mg PO Q4HRS PRN tab 08/13/17 [Last Taken Unknown] Discharge Medications: Refer to the Discharge Home Medication list for PRN reason. PICC Care - Routine: N/A - Orders Services needed: Registered Nurse, Physical Therapy, Occupational Therapy Isolation Type: CDIFF Isolation, Contact Isolation, Droplet Isolation Diet Recommendation: no restrictions on diet - Follow Up Care Current Providers and Referrals: [facility] [Clinic] - follow up in 10 days NONE *PRIMARY CARE P,. [Primary Care Provider] - As per Instructions Ame Vela MD [Medical Doctor] - follow up in 1 week
[2017-08-13 11:45] VITALS: BP 119/70; PULSE 63; RESP 20; TEMP 97.6; O2SAT 90
--- NOTE | 2017-08-13 12:22 | ASMTCMCOM ---
CM Note CM Note Notes: Yvrose w/Elisa at [facility], [facility] pt can go to [facility]. Pt was notified and agrees to go but if a privat room or if pt is off precautions is available, pt would like to transfer to [facility]. CM faxed Derek, a hard copy and a copy of dc orders via [facility]. DC Plan: SNF Date Signed: 08/13/2017 12:22 PM Electronically Signed By:Desire Avalos RN
--- NOTE | 2017-08-14 17:36 | ASDISCHSUM ---
Discharge Information Plan Status:SNF Medically Cleared to Leave: Discharge Date:08/13/2017 02:30 PM CM D/C Disposition:Half-Way Facility ADT D/C Disposition:Half-Way Facility Projected Discharge Date:08/13/2017 11:00 AM Transportation at D/C:Wheelchair Van Discharge Delay Reason: Follow-Up Date:08/13/2017 11:00 AM Discharge Slot: Final Diagnosis: Placement Information Referral Type:*[facility]cf/SNF Referral ID:[id number] Provider Name:[facility] [employer] Address 1:[address] Address 2: City:[place] Selection Factors: State:[place] Patient Contact Information Contact Name:STEPHEN Relationship: Address: Work Phone: [facility] Phone: [facility]/Zip Code:[place] Email: Financial Information Financial Class: Primary Plan Desc:MEDICARE INPATIENT Primary Plan Number:[id number] Secondary Plan Desc: Secondary Plan Number: Assessment Information [facility] CM Progress Note CM Note CM Note Notes: Spoke with , pt has frostbite on his toes, he was [place] a bridge. He is homeless and currently wiithdrawing. Apparently he is not welcome back to group home and also estranged from his and she does not wished to be called. DC Plan: TBD Date Signed: 08/07/2017 04:04 PM Electronically Signed By:Desire Avalos RN [facility] CM Progress Note CM Note CM Note Notes: Spoke w/PROBATION AGENT, pt will be in hospital for a few more days, d/t frostbitten toes, also being checked for flu. PT/OT to gina CM will continue to follow. DC Plan: TBD Date Signed: 08/08/2017 10:55 AM Electronically Signed By:Desire Avalos RN [facility] CM Progress Note CM Note CM Note Notes: Per [employer], patient has been accepted by [facility]. Will anticipate discharge there when he is medically stable. Current CM Discharge plan: [facility] Date Signed: 08/10/2017 01:09 PM Electronically Signed By:Qi Jalloh RN Case Management Discharge Plan Note Case Management Discharge Discharge Order Complete? Answers: Yes Patient to Obtain Answers: Other Notes: [facility] Transportation Arranged Answers: Other Notes: [facility] will Pick (Date 08/12/2017 02:30 PM & Time) Faxed Final Orders Answers: Yes Discharge Comments Notes: D/w [employer]ATION [employer]ENT, final orders faxed. Elisa at [facility] NICOLAS mitchell to call report. Date Signed: 08/12/2017 12:22 PM Electronically Signed By:Desire Avalos RN [facility] CM Progress Note CM Note CM Note Notes: Received call from Elisa at [facility] she did not realize that pt was under precautions and needs a private room which they do not have. She contacted [facility] and requests we send the referral to them that they could likely take him. CM faxed referral and d/w pt, he is amenable to change in SNF. Date Signed: 08/12/2017 03:07 PM Electronically Signed By:Desire Avalos RN [facility] KEITH Progress Note CM Note CM Note Notes: Discharge cancelled, [facility] can't take him today. Will follow up tomorrow. Date Signed: 08/12/2017 05:09 PM Electronically Signed By:Desire Avalos RN [facility] KEITH Progress Note CM Note CM Note Notes: Spoke w/Elisa at [facility] pt can go to [facility]. Pt was notified and agrees to go but if a privat room or if pt is off precautions is available, pt would like to transfer to [facility]. KEITH faxed Derek, a hard copy and a copy of dc orders via [facility]. DC Plan: SNF Date Signed: 08/13/2017 12:22 PM Electronically Signed By:Desire Avalos RN Intervention Information Intervention Type:*IM-Signed Date of Service:08/12/2017 11:41 AM Patient Type:Inpatient Staff Member:Kiki Khan Hours: Discipline: Severity: Comment:
== END 2017-08-13 14:30 | DRG 923 ==
LOC: EDUNIT# → F3E 12:20
PROVIDERS: ADMIT Family Medicine; ATTEND Family Medicine
DX: T34.831A Frostbite with tissue necrosis of right toe(s), initial encounter (principal); T34.832A Frostbite with tissue necrosis of left toe(s), initial encounter; X31.XXXA Exposure to excessive natural cold, initial encounter; J98.8 Other specified respiratory disorders; B34.2 Coronavirus infection, unspecified; R09.02 Hypoxemia; A04.72 Enterocolitis due to Clostridium difficile, not specified as recurrent; I48.91 Unspecified atrial fibrillation; F10.20 Alcohol dependence, uncomplicated; J44.9 Chronic obstructive pulmonary disease, unspecified; I25.10 Atherosclerotic heart disease of native coronary artery without angina pectoris; D69.6 Thrombocytopenia, unspecified; E66.9 Obesity, unspecified; Z68.33 Body mass index [BMI] 33.0-33.9, adult; F17.210 Nicotine dependence, cigarettes, uncomplicated; G47.30 Sleep apnea, unspecified; Z59.0 Homelessness; Z87.01 Personal history of pneumonia (recurrent)
CPT/HCPCS: 97110-GO; 97116-GP; 97161-GP; 97165-GO; 97530-GP; G0008; G0480; G8978-GP-CK; G8979-GP-CJ; G8987-GO-CL; G8988-GO-CJ; J1650; J1940; J3411